=== PATIENT | male | born 1945 | race Caucasian/White ===

== ENCOUNTER → 2019-01-12 10:47 | Outpatient (CLI) | payer MEDICARE, MEDICAID, SELFPAY ==
[2019-01-12 12:47] LABS: BUN Creatinine Ratio 20.8 (6-22); Blood Urea Nitrogen 25 mg/dL (9-20); Calcium 9.9 mg/dL (8.4-10.2); Carbon Dioxide 31 mmol/L (22-32); Chloride 98 mmol/L (98-107); Estimated Glomerular Filt Rate 58.9 mL/min (>60); Glucose 109 mg/dL (80-110); HEMOLYSIS < 15 (0-50); Potassium 3.7 mmol/L (3.4-5.1); Sodium 140 mmol/L (137-145)
== END ==
PROVIDERS: PCP Internal Medicine Cardiovascular Disease; Visit Provider Internal Medicine Cardiovascular Disease
DX: I10 Essential (primary) hypertension (principal)
CPT/HCPCS: 36415; 80048

== ENCOUNTER → 2019-03-14 10:59 | Outpatient (CLI) | payer MEDICARE, MEDICAID, SELFPAY ==
[2019-03-14 11:19] LABS: Add Manual Diff / Slide Review NO; Basophils Absolute Auto 100 /uL (0-100); Basophils Percent Auto 1.2 % (0-2); Eosinophils Absolute Auto 300 /uL (0-450); Eosinophils Percent Auto 7.9 % (2-4); Hematocrit 42.7 % (41-53); Hemoglobin 14.6 g/dL (13.5-17.5); Lymphocytes Absolute Auto 900 /uL (1100-4500); Lymphocytes Percent Auto 20.5 % (25-40); Mean Corpuscular HGB Conc 34.1 % (30-36); Mean Corpuscular Hemoglobin 29.6 PG (26-34); Mean Corpuscular Volume 86.8 fL (80-100); Monocytes Absolute Auto 500 /uL (0-900); Monocytes Percent Auto 11.2 % (3-14); Neutrophils Absolute Auto 2600 /uL (1500-7000); Neutrophils Percent Auto 59.2 % (50-75); Platelet Count 144 X10^3/uL (150-400); Red Blood Cell Count 4.92 X10^6/uL (4.5-5.9); White Blood Cell Count 4.4 X10^3/uL (4.5-11.0)
[2019-03-14 12:33] LABS: Alanine Aminotransferase 42 IU/L (21-72); Albumin 4.6 g/dL (3.5-5.0); Albumin Globulin Ratio 1.5 (1.0-2.8); Alkaline Phosphatase 31 U/L (38-126); Aspartate Aminotransferase 38 IU/L (17-59); BUN Creatinine Ratio 16.9 (6-22); Bilirubin Total 1.2 mg/dL (0.2-1.3); Blood Urea Nitrogen 22 mg/dL (9-20); Calcium 9.9 mg/dL (8.4-10.2); Carbon Dioxide 31 mmol/L (22-32); Chloride 98 mmol/L (98-107); Cholesterol 191 mg/dL (140-199); Estimated Glomerular Filt Rate 53.7 mL/min (>60); Glucose 123 mg/dL (80-110); HDL Cholesterol 65 mg/dL (40-60); HEMOLYSIS < 15 (0-50); LDL Cholesterol Calculated 107 mg/dL (<100); Sodium 137 mmol/L (137-145); Total Protein 7.6 g/dL (6.3-8.2); Triglycerides 95 mg/dL (35-150)
[2019-03-14 12:34] LABS: Creatinine Urine Random 194.5 mg/dL
[2019-03-14 12:35] LABS: Microalbumi Creatinin Ratio Ur 51.9 ug/mg CR (<30); Microalbumin Urine Random 10.1 mg/dL (0-1.6)
[2019-03-14 13:02] LABS: Prostate Specific Antigen Scrn 2.05 ng/mL (0.1-4.0)
[2019-03-14 13:29] LABS: TSH w/ Reflex to FT4 2.51 uIU/mL (0.47-4.68)
== END ==
PROVIDERS: Visit Provider Nurse Practitioner
DX: I10 Essential (primary) hypertension (principal); I48.91 Unspecified atrial fibrillation; Z12.5 Encounter for screening for malignant neoplasm of prostate
CPT/HCPCS: 36415; 80053; 80061; 82043; 82570; 84443; 85025; G0103

== ENCOUNTER → 2019-05-01 13:50 | Outpatient (CLI) | payer MEDICARE, MEDICAID, SELFPAY ==
--- NOTE | 2019-05-01 | DI.ECHO.S_ITS ---
[facility] +---------+ : : [address] : [place] : : : : [id number] : : : : Phone: [phone]+ Echocardiogram Report + + :Name: JORGE ALBERT Study Date: 05/01/2019 Height: 71 in : :[facility] Exam Location: [facility] Weight: 225 lb : : Gender: Male BSA: 2.2 m2 : :: 1945 Age: 74 yrs BP: 150/80 mmHg: :Reason For Study: Cardiomyopathy : :Ordering Physician: Gurdeep Rivas : :Tanvir Performed By: Mar Page : + + Interpretation Summary 1) Mildly enlarged left ventricle with mildly to moderately reduced systolic function (EF about 40%). 2) Normal right ventricular size with low normal function. 3) Both atria are severely dilated. s/p remote ASD closure. 4) Moderate aortic stenosis present (valve area 1.3cm2, mean gradient 11mmHg, severity ratio 0.3). 5) Milld to moderate mitral regurgitation present. 6) Compared to the Echo done 11/06/2012, moderate aortic stenosis is present on this study. Procedure: A two-dimensional transthoracic echocardiogram with color flow and Doppler was performed. The study quality was technically adequate. Comparison is made with the echocardiogram of 11/06/2012. The patient was in atrial fibrillation with heart rates between 64-100 bpm during the exam. The patient had frequent PVCs during the exam. Left Ventricle: The left ventricle is mildly dilated. Left ventricular wall thickness is mildly increased. Left ventricular ejection fraction is estimated to be 40 +/- 5%. There is mild to moderate global hypokinesis of the left ventricle. Diastolic function could not be accurately assessed due to atrial fibrillation. Right Ventricle: The right ventricle is normal size. Right ventricular systolic function is at the lower limits of normal. Atria: Both atria are severely dilated. There is no Doppler evidence for an interatrial shunt. The patient has a history of a ASD repair approximately 30 years ago. Mitral Valve: The mitral valve leaflets are mildly calcified. There is mild to moderate mitral regurgitation. Aortic Valve: The aortic valve is trileaflet. The aortic valve opens well. There is moderate aortic stenosis. There is trace aortic regurgitation. Tricuspid Valve: The tricuspid valve is normal in structure and function. There is mild tricuspid regurgitation. The right ventricular systolic pressure is estimated to be at least 24 mmHg based on an estimated right atrial pressure of 3 mm Hg. Pulmonic Valve: The pulmonic valve is not well visualized. There is trace pulmonic regurgitation. Great Vessels: The aortic root is normal size. The ascending aorta is at the upper limits of normal in size. The pulmonary artery is not well visualized, but is probably normal size. The IVC is of normal diameter and collapses greater than 50% with a sniff. This suggests a low right atrial pressure of 3 mm Hg. Pericardium/ Pleura There is no pericardial effusion. There is no pleural effusion. MMode/2D Measurements & Calculations LVIDd: 6.2 cm LVOT diam: 2.3 cm LVIDs: 4.8 cm Ao root diam: 3.4 cm FS: 23.7 % asc Aorta Diam: 3.6 cm EPSS: 0.77 cm IVSd: 1.2 cm LVPWd: 1.1 cm LV mendoza. diameter/BSA (cm/m^2): 2.8 LV sys. diameter/BSA (cm/m^2): 2.1 LA A2 area: 34.8 cm2 RA long axis: 6.7 cm LA A4 area: 35.7 cm2 RA area: 33.1 cm2 LA length (vol): 8.2 cm RA vol: 138.9 ml LA vol: 128.6 ml RA : 62.6 ml/m2 LA vol index: 58.0 ml/m2 IVC diam: 2.0 cm RVD1 (basal): 4.6 cm TAPSE: 1.9 cm Doppler Measurements & Calculations Ao V2 max: 220.4 cm/sec LVOT Max Ignacio: 64.1 cm/sec Ao V2 mean: 157.9 cm/sec LV V1 max P.6 mmHg Ao max P.4 mmHg LV V1 VTI: 13.6 cm Ao mean P.0 mmHg JOSEY(I,D): 1.3 cm2 Ao V2 VTI: 45.5 cm JOSEY(V,D): 1.2 cm2 sev ratio: 0.30 JOSEY indexed to BSA (cm^2/m^2): 0.57 MV E max ignacio: 86.6 cm/sec TR max ignacio: 231.0 cm/sec MV P1/2t: 50.5 msec TR max P.4 mmHg PA V2 max: 72.1 cm/sec PA V2 mean: 42.3 cm/sec PA mean P.86 mmHg PA Accel Time: 0.08 sec MV P1/2t max ignacio: 87.0 cm/sec SV(LVOT): 58.0 ml MVA(P1/2t): 4.4 cm2 Reading Physician:04:12 PM
== END ==
PROVIDERS: Visit Provider Internal Medicine Cardiovascular Disease
DX: I08.3 Combined rheumatic disorders of mitral, aortic and tricuspid valves (principal); I42.9 Cardiomyopathy, unspecified
CPT/HCPCS: 93306

== ENCOUNTER → 2019-09-21 15:17 | Outpatient (CLI) | payer MEDICARE, MEDICAID, SELFPAY ==
[2019-09-21 15:47] LABS: Carbon Dioxide 33 mmol/L (22-32); Chloride 99 mmol/L (98-107); Magnesium 1.8 mg/dL (1.6-2.3); Sodium 141 mmol/L (137-145)
[2019-09-21 15:49] LABS: HEMOLYSIS 64 (0-50); Potassium 4.3 mmol/L (3.4-5.1)
== END ==
PROVIDERS: Visit Provider Nurse Practitioner
DX: I10 Essential (primary) hypertension (principal); I48.11 Longstanding persistent atrial fibrillation; I50.22 Chronic systolic (congestive) heart failure
CPT/HCPCS: 36415; 80051; 83735

== ENCOUNTER → 2019-10-02 15:03 | Outpatient (CLI) | payer MEDICARE, MEDICAID, SELFPAY ==
--- NOTE | 2019-10-02 15:06 | DI.US.S_ITS ---
PROCEDURE: US ABD AORTA ANEURYSM SCREEN INDICATIONS: PULSITILE ABD MASS, R/O AAA TECHNIQUE: Real time scanning was performed of the aorta and iliac arteries, with image documentation. COMPARISON: None. FINDINGS: Aorta: Proximal aortic diameter measures 2.7 cm. Mid-aorta measures 2.2 cm. Distal aortic diameter is 1.9 cm. Iliac arteries: Right common iliac artery measures 1.4 cm. Left common iliac artery measures 1.2 cm. IMPRESSION: Mild ectasia of the proximal abdominal aorta measuring up to 2.7 cm in diameter. Recommend followup ultrasound in 5 years. Dictated by: Garret Mcgarry M.D. on 10/02/2019 at 17:00 Approved by: Garret Mcgarry M.D. on 10/02/2019 at 17:02
== END ==
PROVIDERS: Visit Provider Nurse Practitioner
DX: R19.00 Intra-abdominal and pelvic swelling, mass and lump, unspecified site (principal); I77.811 Abdominal aortic ectasia; I12.9 Hypertensive chronic kidney disease with stage 1 through stage 4 chronic kidney disease, or unspecified chronic kidney disease; N18.3 Chronic kidney disease, stage 3 (moderate); I48.11 Longstanding persistent atrial fibrillation; R00.2 Palpitations; Z79.01 Long term (current) use of anticoagulants
CPT/HCPCS: 76706

== ENCOUNTER → 2019-10-18 09:16 | Outpatient (CLI) | payer MEDICARE, MEDICAID, SELFPAY ==
--- NOTE | 2019-11-05 08:38 | P.HOLT.S_ITS ---
[facility] Report Referral & Results Date Patient Seen: 10/18/19 Requesting provider: Laura Hutchison Indication: I71.4 Duration of monitoring (days): 11 Diary information: There were no patient diary entries and 1 patient triggered event. The patient triggered event was associated with ventricular ectopic beat as well as atrial fibrillation. Data: Minimum heart rate identified was 35 beats per minute at 08:01 on 10/27/2019 Maximum overall heart rate was 177 beats per minute at 15:29 on 09/23/2019 Patient was continuously in atrial fibrillation with heart rate ranges as above 12.8% of identified beats were ventricular ectopic in origin Patient had 1 4 beat run of ventricular tachycardia at a rate of 140 beats per minute Impression: Persistent atrial fibrillation as above with heart rate intervals as above although generally heart rate was between 50 and 100 beats per minute Ventricular ectopy as above as well Clinical correlation suggested
== END ==
PROVIDERS: Visit Provider Nurse Practitioner
DX: I71.4 Abdominal aortic aneurysm, without rupture (principal)
CPT/HCPCS: 0296T; 0298T

== ENCOUNTER → 2020-01-08 12:54 | Outpatient (CLI) | payer MEDICARE, MEDICAID, SELFPAY ==
[2020-01-08 13:37] LABS: Hematocrit 41.1 % (41-53); Mean Corpuscular HGB Conc 34.1 % (30-36); Mean Corpuscular Hemoglobin 30.7 PG (26-34); Mean Corpuscular Volume 90.1 fL (80-100); Platelet Count 161 X10^3/uL (150-400); Red Blood Cell Count 4.56 X10^6/uL (4.5-5.9); Red Cell Distribution Width 15.8 % (11.6-14.8); White Blood Cell Count 4.9 X10^3/uL (4.5-11.0)
[2020-01-08 14:00] LABS: Hemoglobin A1C% w Est Avg Glu 6.1 % (4.0-6.0)
[2020-01-08 14:09] LABS: BUN Creatinine Ratio 16.4 (6-22); Blood Urea Nitrogen 21 mg/dL (9-20); Calcium 9.9 mg/dL (8.4-10.2); Carbon Dioxide 34 mmol/L (22-32); Chloride 102 mmol/L (98-107); Cholesterol 201 mg/dL (140-199); Estimated Glomerular Filt Rate 54.5 mL/min (>60); Glucose 115 mg/dL (80-110); HDL Cholesterol 65 mg/dL (40-60); HEMOLYSIS < 15 (0-50); LDL Cholesterol Calculated 116 mg/dL (<100); Potassium 4.5 mmol/L (3.4-5.1); Sodium 140 mmol/L (137-145); Triglycerides 99 mg/dL (35-150)
== END ==
PROVIDERS: PCP Nurse Practitioner; Referring Provider Nurse Practitioner; Visit Provider Nurse Practitioner
DX: E78.5 Hyperlipidemia, unspecified (principal); I10 Essential (primary) hypertension; I48.91 Unspecified atrial fibrillation; I50.9 Heart failure, unspecified; E78.00 Pure hypercholesterolemia, unspecified; R73.9 Hyperglycemia, unspecified; R78.5 Finding of other psychotropic drug in blood
CPT/HCPCS: 36415; 80048; 80061; 83036; 85027

== ENCOUNTER → 2020-05-28 13:39 | Outpatient (CLI) | payer MEDICARE, MEDICAID, SELFPAY ==
--- NOTE | 2020-05-28 | DI.ECHO.S_ITS ---
[facility]---------+ [facility] +---------+ : : [address] : [place] : : : : [id number] : : : : Phone: [phone]---------+ Echocardiogram Report + + :Name: JORGE ALBERT Study Date: 05/28/2020 Height: 71 in : :[facility] Weight: 224 lb : : Gender: Male BSA: 2.2 m2 : :: 1945 Age: 75 yrs BP: 156/78 mmHg: :Reason For Study: CARDIOMYOPATHY : :Ordering Physician: DANAY, : :SHANICE Performed By: Pamella Rosenberg : :Referring: SHANICE RAMEY : + + Interpretation Summary 1) Mildly enlarged left ventricle with mildly to moderately reduced systolic function (EF about 40%). 2) Normal right ventricular size with normal function. 3) Both atria are severely dilated. s/p remote ASD closure. 4) Moderate aortic stenosis present (valve area 1.1cm2, mean gradient 17mmHg, severity ratio 0.27). A bicuspid aortic valve cannot be excluded. 5) Milld to moderate mitral regurgitation present. 6) Hypertension present during the study (BP 156/78mmHg). 7) Compared to the Echo done 05/01/2019, no significant change. Procedure: A two-dimensional transthoracic echocardiogram with color flow and Doppler was performed. The study quality was technically adequate. Comparison is made with the echocardiogram of 05/01/2019. The patient was in atrial fibrillation with heart rates between 65-100 bpm during the exam. The patient had frequent PVCs during the exam. Left Ventricle: The left ventricle is mildly dilated. Left ventricular wall thickness is mildly increased. Left ventricular ejection fraction is estimated to be 40 +/- 5%. Diastolic function could not be accurately assessed due to atrial fibrillation. Right Ventricle: The right ventricle is normal in size and function. Atria: The left atrium is severely dilated. The right atrium is severely dilated. History of inatrial closure. Mitral Valve: The mitral valve leaflets are mildly calcified. There is mild to moderate mitral regurgitation. Aortic Valve: A bicuspid aortic valve cannot be excluded. There is moderate aortic stenosis. There is trace aortic regurgitation. Tricuspid Valve: The tricuspid valve is normal in structure and function. There is mild tricuspid regurgitation. The right ventricular systolic pressure is estimated to be at least 31 mmHg based on an estimated right atrial pressure of 3 mm Hg. Pulmonic Valve: The pulmonic valve leaflets are thin and pliable; valve motion is normal. There is trace pulmonic regurgitation. Great Vessels: The aortic root is normal size. The dimensions of the ascending aorta are normal. The IVC is of normal diameter and collapses greater than 50% with a sniff. This suggests a low right atrial pressure of 3 mm Hg. Pericardium/ Pleura There is no pericardial effusion. There is no pleural effusion. MMode/2D Measurements & Calculations LVIDd: 6.0 cm LVOT diam: 2.2 cm LVIDs: 4.8 cm Ao root diam: 3.6 cm FS: 21.0 % asc Aorta Diam: 3.2 cm EPSS: 1.5 cm Ao Arch Diam (Prox Trans): 3.5 cm IVSd: 1.3 cm LVPWd: 1.2 cm LV mendoza. diameter/BSA (cm/m^2): 2.7 LV sys. diameter/BSA (cm/m^2): 2.2 LA A2 area: 34.4 cm2 RA long axis: 7.3 cm LA A4 area: 31.9 cm2 RA area: 30.5 cm2 LA length (vol): 7.0 cm RA vol: 108.2 ml LA vol: 132.2 ml RA : 48.9 ml/m2 LA vol index: 59.7 ml/m2 IVC diam: 2.0 cm RVD1 (basal): 3.5 cm TAPSE: 1.8 cm Doppler Measurements & Calculations Ao V2 max: 262.2 cm/sec LVOT Max Ignacio: 80.4 cm/sec Ao V2 mean: 198.0 cm/sec LV V1 max P.6 mmHg Ao max P.5 mmHg LV V1 VTI: 16.0 cm Ao mean P.7 mmHg JOSEY(I,D): 1.0 cm2 Ao V2 VTI: 58.9 cm JOSEY(V,D): 1.1 cm2 sev ratio: 0.27 JOSEY indexed to BSA (cm^2/m^2): 0.46 MV E max ignacio: 99.1 cm/sec TR max ignacio: 265.3 cm/sec MV A max ignacio: 2.6 cm/sec TR max P.2 mmHg MV E/A: 38.6 PA V2 max: 65.2 cm/sec Med Peak E' Ignacio: 7.3 cm/sec PA V2 mean: 43.3 cm/sec E/E' med: 13.5 PA mean P.86 mmHg Lat Peak E' Ignacio: 10.7 cm/sec PA pr(Accel): 43.0 mmHg E/E' lat: 9.3 E/e' average: 11.4 MV dec time: 0.22 sec MR ERO: 0.17 cm2 MR PISA: 2.7 cm2 SV(LVOT): 59.6 ml MR flow rate: 84.7 cm3/sec MR PISA radius: 0.65 cm Reading Physician:10:56 PM
== END ==
PROVIDERS: PCP Nurse Practitioner; Referring Provider Nurse Practitioner; Visit Provider Internal Medicine Cardiovascular Disease
DX: I08.3 Combined rheumatic disorders of mitral, aortic and tricuspid valves (principal); I42.9 Cardiomyopathy, unspecified
CPT/HCPCS: 93306

== ENCOUNTER → 2020-08-13 13:17 | Outpatient (CLI) | payer MEDICARE, MEDICAID, SELFPAY ==
--- NOTE | 2020-08-13 13:19 | DI.RAD.S_ITS ---
PROCEDURE: XR CHEST 2V INDICATIONS: sob TECHNIQUE: 2 views of the chest were acquired. COMPARISON: [facility], , CHEST 1 VIEW, 05/04/2011, 15:52. FINDINGS: Surgical changes and devices: None. Lungs and pleura: Question subtle pulmonary nodule, right mid lung field, measuring approximately 2 cm. This is not definite. Lungs otherwise clear. Lungs are clear. No pleural effusions or pneumothorax. Mediastinum: Mediastinal contours are normal. Heart size is normal. Bones and chest wall: No suspicious bony abnormalities. Soft tissues appear unremarkable. IMPRESSION: Question 2 cm right mid lung field pulmonary nodule. Recommend CT chest. Dictated by: Brenden Peres M.D. on 08/13/2020 at 13:37 Approved by: Brenden Peres M.D. on 08/13/2020 at 13:51
== END ==
PROVIDERS: PCP Nurse Practitioner; Referring Provider Nurse Practitioner; Visit Provider Nurse Practitioner
DX: R06.02 Shortness of breath (principal); I50.22 Chronic systolic (congestive) heart failure
CPT/HCPCS: 71046

== ENCOUNTER → 2020-08-14 13:32 | Outpatient (CLI) | payer MEDICARE, MEDICAID, SELFPAY ==
--- NOTE | 2020-08-14 13:34 | DI.CT.S_ITS ---
PROCEDURE: CT CHEST W CON INDICATIONS: 2cm density in lung TECHNIQUE: After the administration of intravenous contrast, 5 mm thick sections acquired from the pulmonary apices to the posterior costophrenic angles. 1 mm axial lung, 5 mm thick coronal and sagittal reformats and 7 mm axial MIP were acquired. For radiation dose reduction, the following was used: automated exposure control, adjustment of mA and/or kV according to patient size. COMPARISON: [facility], CR, XR CHEST 2V, 08/13/2020, 13:14. FINDINGS: Image quality: Excellent. Lungs and pleura: There is a subtle pleural-based noncalcified plaque along the anterior right upper lobe surface (3/141), which may account for the chest x-ray opacity. There is a horizontal opacity in the right perihilar region associated with the fissures, likely atelectasis. There are two nodules caudally in the right middle lobe measuring five and 3 mm (3/202). No other suspicious right lung lesions. No lesions are consolidations in the left lung. No pleural effusions or pneumothorax. Central and peripheral airways are patent and normal in caliber. Mediastinum: Heart size is mildly enlarged.. No pericardial effusion. No mediastinal or hilar adenopathy by size criteria. Thoracic aorta and central pulmonary arteries are normal in size. Esophagus is normal in caliber. No hiatal hernia. Bones and chest wall: There is a dermal based nodule measuring approximately 2.3 cm in the posterior chest wall. No other soft tissue lesions. There are median sternotomy changes. No suspicious bony lesions. No vertebral body compression fractures. No axillary or supraclavicular adenopathy by size criteria. Thyroid gland is unremarkable . Abdomen: Visualized upper abdominal solid organs appear normal. Upper abdominal bowel loops are normal in caliber. IMPRESSION: 1. There is an anterior right upper lobe pleural plaque and posterior the skin surface nodule which, superimposed may account for the chest x-ray opacity. No suspicious lung mass. 2. There are small solid lung nodules in the right lung for which follow-up in 6-12 months depending on patient's risk factors is recommended. 3. Mild cardiomegaly and evidence of median sternotomy. Dictated by: Edita Perez M.D. on 08/14/2020 at 17:15 Approved by: Edita Perez M.D. on 08/14/2020 at 17:26
[2020-08-14 14:18] LABS: Add Manual Diff / Slide Review NO; Basophils Absolute Auto 100 /uL (0-100); Basophils Percent Auto 0.8 % (0-2); Eosinophils Absolute Auto 200 /uL (0-450); Eosinophils Percent Auto 3.2 % (2-4); Hematocrit 45.4 % (41-53); Hemoglobin 15.1 g/dL (13.5-17.5); Lymphocytes Absolute Auto 1200 /uL (1100-4500); Lymphocytes Percent Auto 19.1 % (25-40); Mean Corpuscular HGB Conc 33.3 % (30-36); Mean Corpuscular Hemoglobin 29.3 PG (26-34); Monocytes Absolute Auto 700 /uL (0-900); Monocytes Percent Auto 11.4 % (3-14); Neutrophils Absolute Auto 4100 /uL (1500-7000); Neutrophils Percent Auto 65.5 % (50-75); Platelet Count 165 X10^3/uL (150-400); Red Blood Cell Count 5.16 X10^6/uL (4.5-5.9); Red Cell Distribution Width 14.5 % (11.6-14.8); White Blood Cell Count 6.3 X10^3/uL (4.5-11.0)
[2020-08-14 14:31] LABS: Alanine Aminotransferase 28 IU/L (<50); Albumin 4.7 g/dL (3.5-5.0); Albumin Globulin Ratio 1.5 (1.0-2.8); Alkaline Phosphatase 41 U/L (38-126); Aspartate Aminotransferase 35 IU/L (17-59); BUN Creatinine Ratio 20.5 (6-22); Bilirubin Total 0.9 mg/dL (0.2-1.3); Blood Urea Nitrogen 26 mg/dL (9-20); Carbon Dioxide 31 mmol/L (22-32); Chloride 99 mmol/L (98-107); Globulin 3.2 g/dL (1.7-4.1); Glucose 123 mg/dL (80-110); HEMOLYSIS < 15 (0-50); Potassium 3.6 mmol/L (3.4-5.1); Sodium 137 mmol/L (137-145); Total Protein 7.9 g/dL (6.3-8.2)
[2020-08-14 14:35] LABS: Cholesterol 124 mg/dL (140-199); HDL Cholesterol 74 mg/dL (40-60); LDL Cholesterol Calculated 33 mg/dL (<100); Triglycerides 87 mg/dL (35-150)
[2020-08-14 14:48] LABS: Free T3, Triiodothyronine Free 2.85 pg/mL (2.77-5.27); Free T4, Direct Thyroxine 0.75 ng/dL (0.78-2.19)
[2020-08-14 15:01] LABS: Thyroid Stimulating Hormone 2.24 uIU/mL (0.47-4.68)
[2020-08-14 16:04] LABS: Creatinine Urine Random 95.7 mg/dL
[2020-08-14 16:10] LABS: Microalbumi Creatinin Ratio Ur 80.4 ug/mg CR (<30); Microalbumin Urine Random 7.7 mg/dL (0-1.6)
[2020-08-15 09:29] LABS: Hemoglobin A1C% w Est Avg Glu 6.3 % (4.0-6.0)
== END ==
PROVIDERS: PCP Nurse Practitioner; Referring Provider Nurse Practitioner; Visit Provider Nurse Practitioner
DX: R91.1 Solitary pulmonary nodule (principal); I51.7 Cardiomegaly; R91.8 Other nonspecific abnormal finding of lung field; N18.30 Chronic kidney disease, stage 3 unspecified; Z79.899 Other long term (current) drug therapy; G47.10 Hypersomnia, unspecified; I48.11 Longstanding persistent atrial fibrillation; I50.22 Chronic systolic (congestive) heart failure; R53.83 Other fatigue; Z79.01 Long term (current) use of anticoagulants; E78.5 Hyperlipidemia, unspecified; I50.9 Heart failure, unspecified; R00.2 Palpitations; R06.02 Shortness of breath; R73.01 Impaired fasting glucose
CPT/HCPCS: 36415; 71260; 80053; 80061; 82043; 82570; 83036; 84439; 84443; 84481; 85025; Q9967

== ENCOUNTER → 2020-09-10 11:45 | Outpatient (CLI) | payer MEDICARE, MEDICAID, SELFPAY ==
--- NOTE | 2020-09-10 11:48 | DI.US.S_ITS ---
PROCEDURE: US SOFT TISSUE HEAD AND NECK INDICATIONS: swelling upper chest/neck TECHNIQUE: Real-time scanning was performed of the neck region of interest, with image documentation. COMPARISON: None. FINDINGS: Reported midline anterior neck swelling, and scanning through the area of patient's clinical concern reveals no underlying mass cyst or abnormal fluid collection. IMPRESSION: Source of sensation of midline neck swelling is not identified. Contrast-enhanced CT or MR scanning may become necessary. Dictated by: Reymundo Saleh M.D. on 09/10/2020 at 13:27 Approved by: Reymundo Saleh M.D. on 09/10/2020 at 13:28
== END ==
PROVIDERS: PCP Nurse Practitioner; Referring Provider Nurse Practitioner; Visit Provider Nurse Practitioner
DX: R22.1 Localized swelling, mass and lump, neck (principal)
CPT/HCPCS: 76536

== ENCOUNTER → 2020-09-12 12:20 | Outpatient (CLI) | payer MEDICARE, MEDICAID, SELFPAY ==
--- NOTE | 2020-09-12 12:21 | DI.RAD.S_ITS ---
PROCEDURE: FL BARIUM SWALLOW INDICATIONS: trouble swallowing COMPARISON: None. FINDINGS: Function: There is delayed and decreased esophageal peristalsis. No elicited gastroesophageal reflux. There is normal transit of a calibrated barium tablet through the esophagus into the stomach. Morphology: Air-contrast images demonstrate normal mucosal morphology. Single contrast views show no esophageal strictures, extrinsic mass effects. There is a upper esophageal posterior diverticulum above the level of the hyoid. 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 Dictated by: Uriah Kay M.D. on 09/12/2020 at 14:46 Approved by: Uriah Kay M.D. on 09/12/2020 at 14:51
== END ==
PROVIDERS: PCP Nurse Practitioner; Referring Provider Nurse Practitioner; Visit Provider Nurse Practitioner
DX: K22.4 Dyskinesia of esophagus (principal); K44.9 Diaphragmatic hernia without obstruction or gangrene
CPT/HCPCS: 74220

== ENCOUNTER → 2020-10-20 09:21 | Outpatient (CLI) | payer MEDICARE, MEDICAID, SELFPAY ==
[2020-10-20 15:51] LABS: COVID19 -Nasal RAPID Negative (Negative)
== END ==
PROVIDERS: PCP Nurse Practitioner; Visit Provider Family Medicine Sleep Medicine
DX: Z20.828 Contact with and (suspected) exposure to other viral communicable diseases (principal)
CPT/HCPCS: 87635; C9803

== ENCOUNTER 2020-10-22 00:40 | Emergency (ER) | payer MEDICARE, MEDICAID, SELFPAY ==
[2020-10-22] VITALS (12 sets, daily range): BP systolic 148–177; BP diastolic 75–106; PULSE 64–81; RESP 14–28; TEMP 36.1; O2SAT 94–96
--- NOTE | 2020-10-22 00:53 | ED_ITS ---
HPI - SOB/Dyspnea General Chief Complaint: Shortness of Breath/Dyspnea Stated Complaint: SOB, back pain Time Seen by Provider: 10/22/20 00:40 Source: patient and EMS Mode of arrival: EMS Limitations: no limitations History of Present Illness HPI Narrative: 75-year-old male nonsmoker with history of hypertension, AFib (anticoagulated), hyperlipidemia with a history of chronic back pain and obstructive sleep apnea presents by EMS from a local sleep lab with a chief complaint of a sudden onset, and transient episode of shortness of breath associated with some low back pain. Patient states that he was in his normal state of health throughout the course of the day and felt fine when he went to sleep. He states that he woke up at about midnight or so and ambulated to the bathroom and felt okay, he briefly fell back asleep and was awoken with a combination of shortness of breath and some vague lower back pain. He denies any history of the same. He states there was no pattern to his shortness of breath, it was not affected by lying flat, conversation or walking. He denies any chest pain, palpitations, dizziness, lightheadedness or cough. He states that his lower back pain was worse when moving and improved with rest. All of his symptoms have resolved prior to his arrival. He denies any change in his medications. He denies any dietary change or weight gain. He has had no increased swelling in his legs. He denies any exposure to persons known to have COVID MD Complaint: shortness of breath Onset (ago): minute(s) Severity: mild Consistency/Duration: now resolved Relieving factors: nothing Exacerbating factors: nothing Known history of: congestive heart failure Associated symptoms: other (back pain) Treatment prior to arrival: none Related Data Home oxygen amount: none Home Medications Medication Instructions Recorded Confirmed amlodipine 10 mg tablet 10 mg PO DAILY 03/13/19 10/15/20 apixaban 5 mg tablet 5 mg PO BID 03/13/19 10/15/20 losartan 100 mg tablet 100 mg PO DAILY 03/13/19 10/15/20 Previous Rx's Medication Instructions Recorded rosuvastatin 5 mg tablet 5 mg PO DAILY #90 tab 08/13/20 Allergies Allergy/AdvReac Type Severity Reaction Status Date / Time No Known Drug Allergies Allergy Unverified 10/15/20 10:38 Review of Systems Constitutional Constitutional: Denies chills, Denies fatigue, Denies fever(s), Denies frequent falls, Denies lethargy and Denies weakness Eyes Eyes: Denies change in vision, Denies eye discharge, Denies irritation and Denies loss of vision ENT Ears, Nose, Mouth, and Throat: Denies change in voice, Denies dizziness, Denies neck pain, Denies sore throat and Denies throat swelling Cardiovascular Cardiovascular: Denies chest pain, Denies irregular heart rhythm, Denies lightheadedness, Denies palpitations, Reports dyspnea, Denies dyspnea on exertion and Denies orthopnea Respiratory Respiratory: Denies cough, Reports dyspnea, Denies dyspnea on exertion and Denies wheezing Gastrointestinal Gastrointestinal: Denies abdominal pain, Denies change in bowel habits, Denies diarrhea, Denies nausea and Denies vomiting Musculoskeletal Musculoskeletal: Reports back pain, Denies neck pain and Denies numbness Integumentary/Breasts Skin/Breast: Denies pruritus, Denies erythema, Denies rash and Denies wounds Neurologic Neurologic: Denies behavioral changes, Denies confusion, Denies dizziness, Den ies frequent falls, Denies loss of vision, Denies numbness and Denies weakness Psychiatric Psychiatric: Denies anxiety, Denies behavioral changes, Denies confusion, Denies depression, Denies homicidal ideation and Denies suicidal ideation Endocrine Endocrine: Denies fatigue, Denies flushing and Denies palpitations Hematologic/Lymphatic Hematologic/Lymphatic: Denies easy bruising Allergic/Immunologic Allergic/Immunologic: Denies urticaria, Denies throat swelling and Denies wheezing Patient History Medical History Acute right-sided low back pain without sciatica Back stiffness Cervical somatic dysfunction Chicken pox (~1954) Cranial somatic dysfunction Duodenal diverticulum Esophageal dysmotility Hiatal hernia Low back pain Lumbar region somatic dysfunction Measles (~1954) Mumps (~1954) Pelvic somatic dysfunction Pulmonary nodules Sacral region somatic dysfunction Segmental and somatic dysfunction of abdomen and other regions Stiff neck Thoracic region somatic dysfunction Surgical History Anesthesia History of heart surgery (~12/1959) S/P TURP (~2014) Family History Father Stroke History of heart disease Hypertension Mother Pneumonia History of heart disease Hypertension Family/Other Sleep apnea Social History Smoking Status: Never smoker alcohol intake: current (occasional) Smoking Status: Never smoker Exam Narrative Exam Narrative: GENERAL: [75] year old patient appears stated age. Well- nourished, well-developed patient, in mild distress. In no obvious distress HEAD: Atraumatic. Normocephalic. EYES: Pupils equal round and reactive. Extraocular motions intact. No scleral icterus. No injection or drainage. ENT: Nose without bleeding, purulent drainage. Throat without erythema, tonsillar hypertrophy or exudate. Airway patent. NECK: Trachea midline. Non tender CARDIOVASCULAR: Regular rate, irregular rhythm without murmurs, gallops, or rubs. RESPIRATORY: Clear to auscultation. Breath sounds equal bilaterally. No wheezes, rales, or rhonchi. GASTROINTESTINAL: Abdomen soft, non-tender, nondistended. EXTREMITIES: No edema or joint tenderness. BACK: Nontender without deformity or crepitance. No flank tenderness. NEURO: AOx3. SKIN: No rash or erythema of visible areas Initial Vital Signs Initial Vital Signs: Vital Signs Pulse Rate 81 10/22/20 00:45 Respiratory Rate 20 10/22/20 00:45 Blood Pressure 177/106 H 10/22/20 00:45 Pulse Oximetry 95 10/22/20 00:45 Course Orders Ordered: ED Orders 10/22/20 EKG-12 Lead Stat EKG-12 Lead Stat 10/22/20 00:53 XR chest 1V Stat 10/22/20 01:02 Complete Blood Count AUTO DIFF Stat Comprehensive Metabolic Panel Stat D Dimer Stat Ferritin Stat Lactate Dehydrogenase Stat NT-proBNP (BNP-Adult 18+) Stat Procalcitonin Stat Prothrombin Time INR Stat Troponin & CK Cardiac Panel Stat 10/22/20 03:05 Troponin I Stat Vital Signs Vital signs: Vital Signs - 8 hr 10/22/20 00:45 10/22/20 00:50 10/22/20 01:00 Temperature 96.9 F L Pulse Rate 81 74 74 Respiratory Rate 20 24 26 H Blood Pressure 177/106 H 177/106 H Pulse Oximetry 95 96 96 10/22/20 01:19 10/22/20 01:30 10/22/20 02:00 Temperature Pulse Rate 75 75 71 Respiratory Rate 18 22 28 H Blood Pressure 155/79 H 148/75 H Pulse Oximetry 96 95 95 10/22/20 02:30 10/22/20 02:54 10/22/20 03:00 Temperature Pulse Rate 70 64 67 Respiratory Rate 22 22 25 H Blood Pressure 148/75 H Pulse Oximetry 95 94 96 10/22/20 03:30 Temperature Pulse Rate 77 Respiratory Rate 14 Blood Pressure 148/75 H Pulse Oximetry 96 MDM - SOB/Dyspnea Lab Data Attestation: I reviewed the patient's lab results. Result diagrams: 10/22/20 01:02 10/22/20 01:02 Labs: Lab Results 10/22/20 10/22/20 10/22/20 Range/Units 01:02 01:02 01:02 WBC 5.2 (4.5-11.0) X10^3/uL RBC 4.61 (4.5-5.9) X10^6/uL Hgb 13.8 (13.5-17.5) g/dL Hct 40.6 L (41-53) % MCV 88.1 (80-100) fL MCH 29.9 (26-34) PG MCHC 34.0 (30-36) % RDW 15.2 H (11.6-14.8) % Plt Count 146 L (150-400) X10^3/uL Neut % (Auto) 62.1 (50-75) % Lymph % (Auto) 24.3 L (25-40) % [place] % (Auto) 10.5 (3-14) % Eos % (Auto) 2.3 (2-4) % Baso % (Auto) 0.8 (0-2) % Neut # (Auto) 3200 (0819-4850) /uL Lymph # (Auto) 1300 (2409-6232) /uL [place] # (Auto) 500 (0-900) /uL Eos # (Auto) 100 (0-450) /uL Baso # (Auto) 0 (0-100) /uL PT 17.5 H (10.1-12.7) SECONDS INR 1.5 H (0.9-1.3) D-Dimer (<230) ng/mL Sodium 137 (137-145) mmol/L Potassium 3.8 (3.4-5.1) mmol/L Chloride 105 (98-107) mmol/L Carbon Dioxide 26 (22-32) mmol/L BUN 25 H (9-20) mg/dL Creatinine 1.31 H (0.66-1.25) mg/dL Estimated GFR 53.1 L (>60) mL/min BUN/Creatinine Ratio 19.1 (6-22) Glucose 110 (80-110) mg/dL Calcium 9.7 (8.4-10.2) mg/dL Ferritin 75 (18-464) ng/mL Total Bilirubin 1.3 (0.2-1.3) mg/dL AST 44 (17-59) IU/L ALT 28 (<50) IU/L Alkaline Phosphatase 24 L (38-126) U/L Lactate Dehydrogenase 682 H (313-618) U/L Total Creatine Kinase 374 H (55-170) U/L CK-MB (CK-2) 0.78 (<2.37) ng/mL CK-MB (CK-2) Rel Index 0.2 L (1.5-5.0) % Troponin I < 0.012 (0.01-0.034) ng/mL NT-Pro-B Natriuret Pep 447 (<450) pg/mL Total Protein 7.8 (6.3-8.2) g/dL Albumin 4.5 (3.5-5.0) g/dL Globulin 3.3 (1.7-4.1) g/dL Albumin/Globulin Ratio 1.4 (1.0-2.8) Procalcitonin (<0.5) ng/mL 10/22/20 10/22/20 10/22/20 Range/Units 01:02 01:02 03:05 WBC (4.5-11.0) X10^3/uL RBC (4.5-5.9) X10^6/uL Hgb (13.5-17.5) g/dL Hct (41-53) % MCV (80-100) fL MCH (26-34) PG MCHC (30-36) % RDW (11.6-14.8) % Plt Count (150-400) X10^3/uL Neut % (Auto) (50-75) % Lymph % (Auto) (25-40) % [place] % (Auto) (3-14) % Eos % (Auto) (2-4) % Baso % (Auto) (0-2) % Neut # (Auto) (8375-6908) /uL Lymph # (Auto) (7483-2075) /uL [place] # (Auto) (0-900) /uL Eos # (Auto) (0-450) /uL Baso # (Auto) (0-100) /uL PT (10.1-12.7) SECONDS INR (0.9-1.3) D-Dimer 237 H (<230) ng/mL Sodium (137-145) mmol/L Potassium (3.4-5.1) mmol/L Chloride (98-107) mmol/L Carbon Dioxide (22-32) mmol/L BUN (9-20) mg/dL Creatinine (0.66-1.25) mg/dL Estimated GFR (>60) mL/min BUN/Creatinine Ratio (6-22) Glucose (80-110) mg/dL Calcium (8.4-10.2) mg/dL Ferritin (18-464) ng/mL Total Bilirubin (0.2-1.3) mg/dL AST (17-59) IU/L ALT (<50) IU/L Alkaline Phosphatase (38-126) U/L Lactate Dehydrogenase (313-618) U/L Total Creatine Kinase (55-170) U/L CK-MB (CK-2) (<2.37) ng/mL CK-MB (CK-2) Rel Index (1.5-5.0) % Troponin I < 0.012 (0.01-0.034) ng/mL NT-Pro-B Natriuret Pep (<450) pg/mL Total Protein (6.3-8.2) g/dL Albumin (3.5-5.0) g/dL Globulin (1.7-4.1) g/dL Albumin/Globulin Ratio (1.0-2.8) Procalcitonin < 0.05 (<0.5) ng/mL Imaging Data Chest x-ray: Radiologist's Impression: No acute process ECG Data Attestation: I personally reviewed and interpreted this ECG as follows: Interpretation: Slow AFib with occasional PVCs. No other ectopy. No ST segmental change, T-wave inversions. MDM Narrative Medical decision making narrative: Multiple causes of chest pain considered including AL, PE, pneumothorax, pneumonia, aortic dissection, and pleurisy. Patient reports no radiation, no diaphoresis, no provocation with exertion, and no vomiting. Patient, however, completely asymptomatic for duration of visit. Multiple EKGs are nonischemic. Both troponins negative. PE considered but D- dimer negative, therefore thought unlikely. Acute CHF considered but thought unlikely given complete resolution of symptoms without any specific intervention. Patient's symptoms improved over duration of stay with above-stated therapies. Findings and discharge diagnosis discussed with patient/family followed by verbalization of understanding Return precautions discussed with patient/family whom verbalize understanding. Discharge Plan Departure Patient Disposition: Home Clinical Impression: Acute dyspnea Instructions: DI for Shortness of Breath Activity Restrictions/Additional Instructions: *You have been diagnosed with [dyspnea and back pain resolved. Your physical exam, EKGs, lab work and x-ray are all very reassuring. There is no evidence of heart attack, pneumonia, exacerbation of heart failure ] *What to do: *Continue to take medications as directed *Follow up with your primary care provider in 2-3 days, call for an appointment. Let them know you were seen in the Emergency Department and that we ask that you be seen in follow up *Return to ER if you should have any new, worsening or concerning symptoms Prescriptions: No Action amlodipine 10 mg tablet 10 mg PO DAILY RF: 0 Eliquis 5 mg tablet 5 mg PO BID RF: 0 losartan 100 mg tablet 100 mg PO DAILY RF: 0 rosuvastatin [Crestor] 5 mg tablet 5 mg PO DAILY Qty: 90 RF: 0 Referrals: Laura Hutchison ARNP [Primary Care Provider] -
--- NOTE | 2020-10-22 00:53 | DI.RAD.S_ITS ---
PROCEDURE: XR CHEST 1V INDICATIONS: dyspnea and back pain TECHNIQUE: One view of the chest was acquired. COMPARISON: None. FINDINGS: Surgical changes and devices: None. Lungs and pleura: Lungs are clear. No pleural effusions or pneumothorax. Mediastinum: Mediastinal contours appear normal. Tortuous descending thoracic aorta. Heart size is normal. Bones and chest wall: No suspicious bony lesions. Overlying soft tissues appear unremarkable. IMPRESSION: No acute cardiopulmonary disease process. Dictated by: Reba Downey MD, PhD on 10/22/2020 at 8:42 Approved by: Reba Downey MD, PhD on 10/22/2020 at 8:43
[2020-10-22 01:13] LABS: Add Manual Diff / Slide Review NO; Basophils Absolute Auto 0 /uL (0-100); Basophils Percent Auto 0.8 % (0-2); Eosinophils Absolute Auto 100 /uL (0-450); Eosinophils Percent Auto 2.3 % (2-4); Hematocrit 40.6 % (41-53); Hemoglobin 13.8 g/dL (13.5-17.5); Lymphocytes Absolute Auto 1300 /uL (1100-4500); Lymphocytes Percent Auto 24.3 % (25-40); Mean Corpuscular Hemoglobin 29.9 PG (26-34); Mean Corpuscular Volume 88.1 fL (80-100); Monocytes Absolute Auto 500 /uL (0-900); Monocytes Percent Auto 10.5 % (3-14); Neutrophils Absolute Auto 3200 /uL (1500-7000); Neutrophils Percent Auto 62.1 % (50-75); Platelet Count 146 X10^3/uL (150-400); Red Blood Cell Count 4.61 X10^6/uL (4.5-5.9); Red Cell Distribution Width 15.2 % (11.6-14.8); White Blood Cell Count 5.2 X10^3/uL (4.5-11.0)
[2020-10-22 01:23] LABS: Alanine Aminotransferase 28 IU/L (<50); Albumin 4.5 g/dL (3.5-5.0); Albumin Globulin Ratio 1.4 (1.0-2.8); Alkaline Phosphatase 24 U/L (38-126); Aspartate Aminotransferase 44 IU/L (17-59); BUN Creatinine Ratio 19.1 (6-22); Bilirubin Total 1.3 mg/dL (0.2-1.3); Blood Urea Nitrogen 25 mg/dL (9-20); Calcium 9.7 mg/dL (8.4-10.2); Carbon Dioxide 26 mmol/L (22-32); Chloride 105 mmol/L (98-107); Creatine Kinase 374 U/L (55-170); Estimated Glomerular Filt Rate 53.1 mL/min (>60); Globulin 3.3 g/dL (1.7-4.1); Glucose 110 mg/dL (80-110); Sodium 137 mmol/L (137-145); Total Protein 7.8 g/dL (6.3-8.2)
[2020-10-22 01:24] LABS: INR 1.5 (0.9-1.3); Prothrombin Time 17.5 SECONDS (10.1-12.7)
[2020-10-22 01:25] LABS: HEMOLYSIS 84 (0-50)
[2020-10-22 01:26] LABS: Potassium 3.8 mmol/L (3.4-5.1)
[2020-10-22 01:35] LABS: NT-proBNP (BNP-Adult 18+) 447 pg/mL (<450); Troponin I < 0.012 ng/mL (0.01-0.034)
[2020-10-22 01:38] LABS: CKMB % Relative Index 0.2 % (1.5-5.0); Creatine Kinase MB 0.78 ng/mL (<2.37)
[2020-10-22 01:40] LABS: Procalcitonin < 0.05 ng/mL (<0.5)
[2020-10-22 01:52] LABS: Lactate Dehydrogenase 682 U/L (313-618)
[2020-10-22 01:57] LABS: Ferritin 75 ng/mL (18-464)
[2020-10-22 02:33] LABS: D Dimer 237 ng/mL (<230)
[2020-10-22 03:31] LABS: Troponin I < 0.012 ng/mL (0.01-0.034)
== END 2020-10-22 06:00 | disposition home or self-care (01) ==
PROVIDERS: Emergency Provider Emergency Medicine; PCP Nurse Practitioner
DX: R06.00 Dyspnea, unspecified (principal); R07.9 Chest pain, unspecified; M54.5 Low back pain; I10 Essential (primary) hypertension; I48.91 Unspecified atrial fibrillation; Z79.01 Long term (current) use of anticoagulants; E78.5 Hyperlipidemia, unspecified
CPT/HCPCS: 36415; 71045; 80053; 82550; 82553; 82728; 83615; 83880; 84145; 84484; 85025; 85379; 85610; 93005; 99283; 99284

== ENCOUNTER → 2020-11-04 10:12 | Outpatient (CLI) | payer MEDICARE, MEDICAID, SELFPAY ==
[2020-11-04 12:18] LABS: COVID19 -Nasal RAPID Negative (Negative)
== END ==
PROVIDERS: PCP Nurse Practitioner; Visit Provider Family Medicine Sleep Medicine
DX: Z01.812 Encounter for preprocedural laboratory examination (principal); Z20.822 Contact with and (suspected) exposure to COVID-19
CPT/HCPCS: 87635; C9803

== ENCOUNTER → 2020-12-19 12:57 | Outpatient (CLI) | payer MEDICARE, MEDICAID, SELFPAY ==
[2020-12-19 14:13] LABS: HEMOLYSIS < 15 (0-50); Potassium 4.1 mmol/L (3.4-5.1)
[2020-12-19 14:14] LABS: Alanine Aminotransferase 32 IU/L (<50); Albumin Globulin Ratio 1.6 (1.0-2.8); Alkaline Phosphatase 36 U/L (38-126); Aspartate Aminotransferase 37 IU/L (17-59); BUN Creatinine Ratio 12.3 (6-22); Blood Urea Nitrogen 16 mg/dL (9-20); Calcium 9.9 mg/dL (8.4-10.2); Carbon Dioxide 29 mmol/L (22-32); Chloride 102 mmol/L (98-107); Cholesterol 164 mg/dL (140-199); Estimated Glomerular Filt Rate 53.5 mL/min (>60); Globulin 3.1 g/dL (1.7-4.1); Glucose 126 mg/dL (80-110); HDL Cholesterol 91 mg/dL (40-60); LDL Cholesterol Calculated 59 mg/dL (<100); Magnesium 2.1 mg/dL (1.6-2.3); Sodium 139 mmol/L (137-145); Total Protein 8.1 g/dL (6.3-8.2); Triglycerides 68 mg/dL (35-150)
[2020-12-19 14:29] LABS: Free T3, Triiodothyronine Free 3.65 pg/mL (2.77-5.27); Free T4, Direct Thyroxine 0.86 ng/dL (0.78-2.19)
[2020-12-19 14:43] LABS: Thyroid Stimulating Hormone 1.15 uIU/mL (0.47-4.68)
[2020-12-19 16:07] LABS: Microalbumi Creatinin Ratio Ur 244.2 ug/mg CR (<30)
== END ==
PROVIDERS: PCP Nurse Practitioner; Referring Provider Nurse Practitioner; Visit Provider Nurse Practitioner
DX: I10 Essential (primary) hypertension (principal); I50.22 Chronic systolic (congestive) heart failure; N18.30 Chronic kidney disease, stage 3 unspecified; Z01.812 Encounter for preprocedural laboratory examination; E78.5 Hyperlipidemia, unspecified; Z79.899 Other long term (current) drug therapy; R79.89 Other specified abnormal findings of blood chemistry; R73.01 Impaired fasting glucose
CPT/HCPCS: 36415; 80053; 80061; 82043; 82570; 83735; 84439; 84443; 84481

== ENCOUNTER → 2020-12-22 12:30 | Outpatient (CLI) | payer MEDICARE, MEDICAID, SELFPAY | PROVIDERS: PCP Nurse Practitioner; Referring Provider Nurse Practitioner; Visit Provider Nurse Practitioner | DX: Z01.810 Encounter for preprocedural cardiovascular examination (principal) | CPT/HCPCS: 93005 ==

== ENCOUNTER → 2020-12-31 11:00 | Outpatient (CLI) | payer MEDICARE, MEDICAID, SELFPAY ==
[2020-12-31 13:17] LABS: COVID19 -Nasal RAPID Negative (Negative)
== END ==
PROVIDERS: PCP Nurse Practitioner; Visit Provider Nurse Practitioner Family
DX: Z01.812 Encounter for preprocedural laboratory examination (principal); Z20.822 Contact with and (suspected) exposure to COVID-19
CPT/HCPCS: 87635; C9803

== ENCOUNTER → 2021-01-01 08:17 | Outpatient (CLI) | payer MEDICARE, MEDICAID, SELFPAY ==
--- NOTE | 2021-01-01 08:51 | PM.TREADMILL ---
Cardiac Stress Test Report Referral & Results Date Patient Seen: 01/01/21 Time Patient Seen: 08:45 Requesting provider: Laura Hutchison Indication: Preoperative clearance Rest ECG: Atrial fibrillation with frequent PVCs Procedure Note: Today following both written and verbal informed consent, the patient was exercised according to a standard Gabriel protocol. The patient exercised for a total of 1 minutes 23 seconds achieving a maximum heart rate of 159. Patient's maximum systolic blood pressure was 142. Test was terminated early due to marked shortness of breath, fatigue, poor balance that represented an imminent safety concern. Test is incomplete. He demonstrated an exaggerated hemodynamic response to exercise. PVCs became less frequent with exercise. No other EKG changes. Impression: Incomplete test. The patient has serious functional impairment, which is likely to be cardiac in origin. I strongly recommend delaying surgical clearance until after this test is repeated with Lexiscan and cardiolite. Please note: Actual ECG tracings can be found in the PACS system.
== END ==
PROVIDERS: PCP Nurse Practitioner; Referring Provider Nurse Practitioner; Visit Provider Nurse Practitioner
DX: R07.89 Other chest pain (principal); I48.91 Unspecified atrial fibrillation; I49.3 Ventricular premature depolarization
CPT/HCPCS: 93016; 93017; 93018

== ENCOUNTER → 2021-01-14 10:06 | Outpatient (CLI) | payer MEDICARE, MEDICAID, SELFPAY ==
[2021-01-14 11:32] LABS: COVID19 -Nasal RAPID Negative (Negative)
== END ==
PROVIDERS: PCP Nurse Practitioner; Visit Provider Physician Assistant
DX: Z01.812 Encounter for preprocedural laboratory examination (principal); Z20.822 Contact with and (suspected) exposure to COVID-19
CPT/HCPCS: 87635; C9803

== ENCOUNTER → 2021-01-15 10:29 | Outpatient (CLI) | payer MEDICARE, MEDICAID, SELFPAY ==
--- NOTE | 2021-01-15 11:47 | PM.TREADMILL ---
Cardiac Stress Test Report Referral & Results Date Patient Seen: 01/15/21 Time Patient Seen: 11:48 Requesting provider: Laura Hutchison Indication: chest pain Rest ECG: atrial fibrillation with controlled ventricular rate and frequent PVCs Procedure Note: After Lexiscan injection had minimal dyspnea, no chest discomfort No significant ST changes after Lexiscan injection Impression: Normal Lexiscan stress test Nuclear images pending Please note: Actual ECG tracings can be found in the PACS system.
--- NOTE | 2021-01-19 18:04 | DI.NM.S_ITS ---
DATE OF SERVICE: 01/19/2021 PROCEDURE: Pharmacological perfusion study. INDICATION: Preop evaluation, underlying chronic AFib, hypertension, history of CHF, shortness of breath, sleep apnea, chronic kidney disease. RADIOPHARMACEUTICAL: 26.2 millicurie of technetium-99m Myoview IV was injected at stress and 25.7 millicurie of technetium-99m Myoview IV was injected at rest. CARDIAC STRESS: The patient underwent IV Lexiscan perfusion study under the supervision of the attending staff as per standard intravenous Lexiscan protocol. Baseline rhythm was AFib with intermittent PVCs and some nonspecific ST changes. During intravenous Lexiscan stress test, the patient continued to have intermittent PVCs without any obvious ischemic EKG changes. The patient remained in AFib. No chest discomfort. [place] minimal dyspnea. The patient remained hemodynamically stable. RAW DATA: There is increased subdiaphragmatic activity. Patient's weight is 230 pounds. GATED STUDY: Stress LV ejection fraction about 55 percent. There appears to be mild global hypokinesis. Resting LV ejection fraction 51 percent. Resting end- diastolic volume 218 mL, suggestive of dilated left ventricle. TID ratio 0.97, which is within normal limits. Lung/heart ratio 0.66, which is within normal limits. MYOCARDIAL PERFUSION: The stress supine and resting supine images revealed a moderate-sized, mild to moderately decreased perfusion of inferior wall, inferoapex, which got partially improved during prone images. Prone images remain ing have mild to moderately decreased perfusion of base to mid inferior wall. There was no reversible ischemia. CONCLUSION: I will call this study and abnormal myocardial perfusion study with infarction of base to mid inferior wall of mild to moderate size. The patient has a dilated left ventricle. Resting end-diastolic volume 218 mL. Underlying atrial fibrillation with intermittent premature ventricular contractions. Resting left ventricular ejection fraction was 51 percent and stress left ventricular ejection fraction 55 percent. No sustained ventricular tachycardia is seen. John Alberto - LALA/ernesto/daniel doc#: [id number]/job#: [id number] dd: 01/19/2021 16:51:00 dt: 01/19/2021 17:34:00 DICTATING MD/COPIES TO: Rajesh Hobbs MD; Jamaal Stewart DO; Josh Hutchison MD COPIES MNE: PEREZ; ;
== END ==
PROVIDERS: PCP Nurse Practitioner; Referring Provider Nurse Practitioner; Visit Provider Nurse Practitioner
DX: R07.89 Other chest pain (principal); R94.39 Abnormal result of other cardiovascular function study; I13.0 Hypertensive heart and chronic kidney disease with heart failure and stage 1 through stage 4 chronic kidney disease, or unspecified chronic kidney disease; N18.9 Chronic kidney disease, unspecified; I50.9 Heart failure, unspecified; I48.20 Chronic atrial fibrillation, unspecified; G47.30 Sleep apnea, unspecified
CPT/HCPCS: 78452; 93016; 93017; 93018; A9502; J2785

== ENCOUNTER → 2021-06-09 14:39 | Outpatient (CLI) | payer MEDICARE, MEDICAID, SELFPAY ==
--- NOTE | 2021-06-09 14:41 | DI.ECHO.S_ITS ---
[facility]---------+ [facility] +---------+ : : [address] : [place] : : : : [id number] : : : : Phone: [phone]+ Echocardiogram Report + + :Name: JORGE ALBERT Study Date: 06/09/2021 Height: 71 in : :[facility] ReadingLocation: Weight: 225 lb : : Gender: Male BSA: 2.2 m2 : :: 1945 Age: 76 yrs BP: 151/100 mmHg: :Reason For Study: CARDIOMYOPAHTY : :Ordering Physician: DANAY, : :SHANICE Performed By: Pamella Rosenberg : :Referring: SHANICE RAMEY : + + Interpretation Summary 1) Mildly enlarged left ventricle with mildly reduced systolic function (EF 45-50%). 2) Mildly enlarged right ventricular size with normal function. 3) Both atria are severely dilated. s/p remote ASD closure. 4) Moderate aortic stenosis present (valve area 1.2cm2, mean gradient 11mmHg, severity ratio 0.31). A bicuspid aortic valve cannot be excluded. 5) Milld to moderate mitral regurgitation present. 6) Hypertension present during the study (BP 151/100mmHg). 7) Compared to the Echo done 05/28/2020, LVEF has improved from about 40% to 45-50% on this study. Procedure: A two-dimensional transthoracic echocardiogram with color flow and Doppler was performed. The study quality was technically adequate. There is no prior echocardiogram noted for this patient. The patient had occasional PVCs during the exam. The heart rate ranged between 61-87 bpm during the study. Left Ventricle: The left ventricle is mildly dilated. There is mild concentric left ventricular hypertrophy. The ejection fraction is estimated to be 45-50%. Right Ventricle: The right ventricle is mildly dilated. The right ventricular systolic function is normal. Atria: The left atrium is severely dilated. The right atrium is severely dilated. There is no Doppler evidence for an interatrial shunt. Mitral Valve: The mitral valve leaflets appear mildly thickened, but open well. There is mild to moderate mitral regurgitation. Aortic Valve: A bicuspid aortic valve cannot be excluded. There is moderate aortic stenosis. The peak aortic velocity is 2.12 m/sec. The aortic valve mean gradient is 11 mmHg. The calculated aortic valve area is 1.2 cm2. There is mild aortic regurgitation. Tricuspid Valve: The tricuspid valve is normal in structure and function. There is mild tricuspid regurgitation. The right ventricular systolic pressure is estimated to be at least 35 mmHg based on an estimated right atrial pressure of 3 mm Hg. Pulmonic Valve: The pulmonic valve is not well seen, but is grossly normal. There is mild pulmonic regurgitation. Great Vessels: The aortic root is normal size. The ascending aorta is at the upper limits of normal in size. The IVC is of normal diameter and collapses greater than 50% with a sniff. This suggests a low right atrial pressure of 3 mm Hg. Pericardium/ Pleura There is no pericardial effusion. There is no pleural effusion. MMode/2D Measurements & Calculations LVIDd: 6.1 cm LVOT diam: 2.2 cm LVIDs: 4.5 cm Ao root diam: 3.7 cm FS: 26.8 % asc Aorta Diam: 3.4 cm IVSd: 1.1 cm Ao Arch Diam (Prox Trans): 3.0 cm LVPWd: 1.2 cm LV mendoza. diameter/BSA (cm/m^2): 2.8 LV sys. diameter/BSA (cm/m^2): 2.0 LA A2 area: 36.7 cm2 RA long axis: 7.4 cm LA A4 area: 36.2 cm2 RA area: 33.5 cm2 LA length (vol): 7.7 cm RA vol: 129.2 ml LA vol: 146.8 ml RA : 58.3 ml/m2 LA vol index: 66.2 ml/m2 IVC diam: 1.6 cm RVD1 (basal): 4.4 cm TAPSE: 1.9 cm Doppler Measurements & Calculations Ao V2 max: 212.3 cm/sec LVOT Max Ignacio: 67.4 cm/sec Ao V2 mean: 157.6 cm/sec LV V1 max P.8 mmHg Ao max P.6 mmHg LV V1 VTI: 13.8 cm Ao mean P.1 mmHg JOSEY(I,D): 1.2 cm2 Ao V2 VTI: 44.8 cm JOSEY(V,D): 1.2 cm2 sev ratio: 0.31 JOSEY indexed to BSA (cm^2/m^2): 0.54 MV E max ignacio: 94.4 cm/sec TR max ignacio: 281.3 cm/sec MV A max ignacio: 1.9 cm/sec TR max P.7 mmHg MV E/A: 50.5 PA pr(Accel): 22.5 mmHg Med Peak E' Ignacio: 8.4 cm/sec E/E' med: 11.2 Lat Peak E' Ignacio: 13.4 cm/sec E/E' lat: 7.1 E/e' average: 9.1 MV dec time: 0.19 sec SV(LVOT): 53.4 ml Reading Physician:04:35 PM
== END ==
PROVIDERS: PCP Nurse Practitioner; Referring Provider Internal Medicine Cardiovascular Disease; Visit Provider Internal Medicine Cardiovascular Disease
DX: I08.3 Combined rheumatic disorders of mitral, aortic and tricuspid valves (principal); I42.8 Other cardiomyopathies
CPT/HCPCS: 93306

== ENCOUNTER 2021-12-08 12:27 | Emergency (ER) | payer MEDICARE, MEDICAID, SELFPAY ==
[2021-12-08] VITALS (7 sets, daily range): BP systolic 151–179; BP diastolic 72–90; PULSE 73–103; RESP 21–27; TEMP 37; O2SAT 93–96; BMI 33.0
--- NOTE | 2021-12-08 12:34 | DI.RAD.S_ITS ---
PROCEDURE: XR CHEST 1V INDICATIONS: chest pain TECHNIQUE: One view of the chest was acquired. COMPARISON: [facility], CR, XR CHEST 1V, 10/22/2020, 1:00. FINDINGS: Surgical changes and devices: Sternotomy wires are seen. Lungs and pleura: Lungs are clear. No pleural effusions or pneumothorax. Mediastinum: The cardiac contours are within normal limits. The aorta demonstrates calcification and tortuosity. Bones and chest wall: Age-appropriate bony degenerative changes are seen. No suspicious bony lesions. Overlying soft tissues appear unremarkable. IMPRESSION: No significant portable chest abnormality can be seen for age. If clinically appropriate, a short-term followup chest series (with PA and lateral views) performed in deep inspiration is suggested for further evaluation. Dictated by: Karlos Rosales M.D. on 12/08/2021 at 11:48 Approved by: Karlos Rosales M.D. on 12/08/2021 at 11:48
[2021-12-08 12:49] LABS: Add Manual Diff / Slide Review NO; Basophils Absolute Auto 0 /uL (0-100); Basophils Percent Auto 0.9 % (0-2); Eosinophils Absolute Auto 300 /uL (0-450); Hematocrit 41.3 % (41-53); Hemoglobin 14.3 g/dL (13.5-17.5); Lymphocytes Absolute Auto 1100 /uL (1100-4500); Lymphocytes Percent Auto 19.7 % (25-40); Mean Corpuscular HGB Conc 34.7 % (30-36); Mean Corpuscular Hemoglobin 30.1 PG (26-34); Mean Corpuscular Volume 86.8 fL (80-100); Monocytes Absolute Auto 600 /uL (0-900); Monocytes Percent Auto 10.5 % (3-14); Neutrophils Absolute Auto 3600 /uL (1500-7000); Neutrophils Percent Auto 63.9 % (50-75); Platelet Count 177 X10^3/uL (150-400); Red Blood Cell Count 4.76 X10^6/uL (4.5-5.9); Red Cell Distribution Width 14.7 % (11.6-14.8); White Blood Cell Count 5.6 X10^3/uL (4.5-11.0)
[2021-12-08 12:58] LABS: INR 1.4 (0.9-1.3); Prothrombin Time 15.2 SECONDS (10.1-12.7)
[2021-12-08 13:01] LABS: PTT Partial Thromboplastin Tim 58 SECONDS (26.4-36.2)
[2021-12-08 13:03] LABS: Alanine Aminotransferase 31 IU/L (<50); Albumin 4.6 g/dL (3.5-5.0); Albumin Globulin Ratio 1.5 (1.0-2.8); Alkaline Phosphatase 50 U/L (38-126); Aspartate Aminotransferase 37 IU/L (17-59); BUN Creatinine Ratio 18.5 (6-22); Bilirubin Total 0.7 mg/dL (0.2-1.3); Blood Urea Nitrogen 22 mg/dL (9-20); Calcium 9.7 mg/dL (8.4-10.2); Carbon Dioxide 31 mmol/L (22-32); Chloride 99 mmol/L (98-107); Creatine Kinase 134 U/L (55-170); Estimated Glomerular Filt Rate 59.1 mL/min (>60); Glucose 184 mg/dL (80-110); HEMOLYSIS < 15 (0-50); Lipase 180 U/L (23-300); Magnesium 1.8 mg/dL (1.6-2.3); Potassium 3.6 mmol/L (3.4-5.1); Sodium 137 mmol/L (137-145); Total Protein 7.6 g/dL (6.3-8.2)
[2021-12-08 13:06] LABS: COVID19 -Nasal RAPID Negative (Negative)
[2021-12-08 13:13] LABS: Troponin I < 0.012 ng/mL (0.01-0.034)
[2021-12-08 13:19] LABS: CKMB % Relative Index 1.3 % (1.5-5.0)
--- NOTE | 2021-12-08 13:25 | PC.NURSE ---
PT reports right lower chest pain x 1 week. Reports history of Afib and CHF. Increased shortness of breath and pain increases when he tries to sleep.
[2021-12-08 13:49] LABS: NT-proBNP (BNP-Adult 18+) 755 pg/mL (<450)
--- NOTE | 2021-12-08 14:13 | ED.CHESTPAIN ---
HPI - Chest Pain General Chief Complaint: Chest Pain Stated Complaint: CHEST PAIN Time Seen by Provider: 12/08/21 14:04 Source: patient Mode of arrival: Ambulatory Limitations: no limitations Limitations: no limitations History of Present Illness HPI narrative: This is a 76-year-old male who comes in with complaint of week and a half of right-sided chest pain. Patient states that it has been intermittent but is typically persistent overnight he started noticing more frequently during the day. Had a little bit of tight sensation. He states the 1st night or day that he really noticed it was radiating from front to back they put some pain patches on which was somewhat helpful. Has not had continued radiation. He did notice that he has had several scabbed and erythematous spots on his chest this started around the same time as the pain. Patient states feels little short of breath no fevers or chills. No cold cough or congestion. He has not been sweaty or diaphoretic, no nausea or vomiting. Patient does have a history of AFib, he is on Eliquis as a history CHF. No cardiac stents. He had a cardiac surgery as a child. He denies any ablation, cardiac stents and had a catheterization 12 years ago which was negative. He has had prostate surgery for BPH. No tobacco, alcohol or illicit. Related Data Home Medications Medication Instructions Recorded Confirmed amlodipine 10 mg tablet 10 mg PO DAILY 03/13/19 12/08/21 apixaban 5 mg tablet (Eliquis) 5 mg PO BID 03/13/19 12/08/21 losartan 100 mg tablet 100 mg PO DAILY 03/13/19 12/08/21 CPAP ResMed 07/29/21 07/29/21 chlorthalidone 25 mg tablet 12.5 mg PO DAILY 12/08/21 12/08/21 Previous Rx's Medication Instructions Recorded rosuvastatin 5 mg tablet (Crestor) 5 mg PO DAILY #90 tab 08/13/20 gabapentin 300 mg capsule 300 mg PO TID #30 cap 12/08/21 valacyclovir 1 gram tablet 1,000 mg PO TID 7 Days #21 tab 12/08/21 Allergies Allergy/AdvReac Type Severity Reaction Status Date / Time No Known Drug Allergies Allergy Verified 12/08/21 12:34 Review of Systems Review of Systems ROS Unobtainable: All systems reviewed & are unremarkable except as noted in HPI and below Patient History Medical History Acute right-sided low back pain without sciatica Back stiffness Cervical somatic dysfunction Chicken pox (~1954) Cranial somatic dysfunction Duodenal diverticulum Esophageal dysmotility Hiatal hernia Low back pain Lumbar region somatic dysfunction Measles (~1954) Mumps (~1954) Pelvic somatic dysfunction Pulmonary nodules Sacral region somatic dysfunction Segmental and somatic dysfunction of abdomen and other regions Stiff neck Thoracic region somatic dysfunction Surgical History Anesthesia History of heart surgery (~12/1959) S/P TURP (~2014) Family History Father Stroke History of heart disease Hypertension Mother Pneumonia History of heart disease Hypertension Family/Other Sleep apnea Social History Smoking Status: Never smoker alcohol intake: current (occasional) Smoking Status: Never smoker alcohol intake frequency: holidays/special occasions only Substance Use Type: does not use Exam Narrative Exam Narrative: GENERAL: Alert and oriented x three, well-nourished male in mild distress. HEENT: Head normocephalic, atraumatic, EOMI, pupils reactive, face symmetric, moist mucous membranes NECK: Supple, full range of motion CARDIOVASCULAR: Regular rate and rhythm without murmurs, rubs or gallops. Patient has an erythematous vesicular rash extending from his right T6 dermatome midline anterior chest with several lesions and a few including in his back to the posterior midline. RESPIRATORY: Breath sounds equal bilaterally, no wheezes rales or rhonchi. ABDOMEN: Soft, nontender. Normoactive bowel sounds all 4 quadrants. No guarding or rebound, rigidity, no mass : No CVA tenderness EXTREMITIES: Normal range of motion. Neurovascularly intact. NEUROLOGICAL: Cranial nerves II through XII grossly intact. Moving all extremities SKIN: Warm, dry, no petechiae, no rashes or lesions otherwise noted. Initial Vital Signs Initial Vital Signs: Vital Signs Temperature 98.6 F 12/08/21 12:29 Pulse Rate 103 H 12/08/21 12:29 Respiratory Rate 24 12/08/21 12:29 Blood Pressure 179/90 H 12/08/21 12:29 Pulse Oximetry 96 12/08/21 12:29 Course Orders Ordered: ED Orders 12/08/21 12:34 XR chest 1V Stat EKG-12 Lead Stat 12/08/21 12:35 COVID19 -Nasal swab/Pre-Proc Stat Complete Blood Count AUTO DIFF Stat Comprehensive Metabolic Panel Stat Lipase Stat Magnesium Stat Partial Thromboplastin Time Stat Prothrombin Time INR Stat Troponin & CK Cardiac Panel Stat 12/08/21 13:25 BNP [NT-proBNP (BNP-Adult 18+)] Stat Vital Signs Vital signs: Vital Signs - 8 hr 12/08/21 12:29 12/08/21 12:32 12/08/21 12:33 Temperature 98.6 F Pulse Rate 103 H 100 H Respiratory Rate 24 Blood Pressure 179/90 H 179/90 H Pulse Oximetry 96 96 96 12/08/21 13:00 12/08/21 13:30 12/08/21 15:02 Temperature Pulse Rate 82 73 86 Respiratory Rate 27 H 21 Blood Pressure 161/72 H 151/74 H 177/84 H Pulse Oximetry 96 93 96 12/08/21 15:08 Temperature Pulse Rate 77 Respiratory Rate Blood Pressure 177/84 H Pulse Oximetry 96 MDM - Chest Pain Lab Data Result diagrams: 12/08/21 12:35 12/08/21 12:35 Labs: Lab Results 12/08/21 12/08/21 12/08/21 Range/Units 12:35 12:35 12:35 WBC 5.6 (4.5-11.0) X10^3/uL RBC 4.76 (4.5-5.9) X10^6/uL Hgb 14.3 (13.5-17.5) g/dL Hct 41.3 (41-53) % MCV 86.8 (80-100) fL MCH 30.1 (26-34) PG MCHC 34.7 (30-36) % RDW 14.7 (11.6-14.8) % Plt Count 177 (150-400) X10^3/uL Neut % (Auto) 63.9 (50-75) % Lymph % (Auto) 19.7 L (25-40) % [place] % (Auto) 10.5 (3-14) % Eos % (Auto) 5.0 H (2-4) % Baso % (Auto) 0.9 (0-2) % Neut # (Auto) 3600 (4508-6141) /uL Lymph # (Auto) 1100 (1380-4280) /uL [place] # (Auto) 600 (0-900) /uL Eos # (Auto) 300 (0-450) /uL Baso # (Auto) 0 (0-100) /uL PT 15.2 H (10.1-12.7) SECONDS INR 1.4 H (0.9-1.3) APTT 58 H (26.4-36.2) SECONDS Sodium 137 (137-145) mmol/L Potassium 3.6 (3.4-5.1) mmol/L Chloride 99 (98-107) mmol/L Carbon Dioxide 31 (22-32) mmol/L BUN 22 H (9-20) mg/dL Creatinine 1.19 (0.66-1.25) mg/dL Estimated GFR 59.1 L (>60) mL/min BUN/Creatinine Ratio 18.5 (6-22) Glucose 184 H (80-110) mg/dL Calcium 9.7 (8.4-10.2) mg/dL Magnesium 1.8 (1.6-2.3) mg/dL Total Bilirubin 0.7 (0.2-1.3) mg/dL AST 37 (17-59) IU/L ALT 31 (<50) IU/L Alkaline Phosphatase 50 (38-126) U/L Total Creatine Kinase 134 (55-170) U/L CK-MB (CK-2) 1.80 (<2.37) ng/mL CK-MB (CK-2) Rel Index 1.3 L (1.5-5.0) % Troponin I < 0.012 (0.01-0.034) ng/mL NT-Pro-B Natriuret Pep (<450) pg/mL Total Protein 7.6 (6.3-8.2) g/dL Albumin 4.6 (3.5-5.0) g/dL Globulin 3.0 (1.7-4.1) g/dL Albumin/Globulin Ratio 1.5 (1.0-2.8) Lipase 180 (23-300) U/L SARS-CoV-2 (PCR) (Negative) 12/08/21 12/08/21 Range/Units 12:35 13:25 WBC (4.5-11.0) X10^3/uL RBC (4.5-5.9) X10^6/uL Hgb (13.5-17.5) g/dL Hct (41-53) % MCV (80-100) fL MCH (26-34) PG MCHC (30-36) % RDW (11.6-14.8) % Plt Count (150-400) X10^3/uL Neut % (Auto) (50-75) % Lymph % (Auto) (25-40) % [place] % (Auto) (3-14) % Eos % (Auto) (2-4) % Baso % (Auto) (0-2) % Neut # (Auto) (3347-4180) /uL Lymph # (Auto) (0080-5784) /uL [place] # (Auto) (0-900) /uL Eos # (Auto) (0-450) /uL Baso # (Auto) (0-100) /uL PT (10.1-12.7) SECONDS INR (0.9-1.3) APTT (26.4-36.2) SECONDS Sodium (137-145) mmol/L Potassium (3.4-5.1) mmol/L Chloride (98-107) mmol/L Carbon Dioxide (22-32) mmol/L BUN (9-20) mg/dL Creatinine (0.66-1.25) mg/dL Estimated GFR (>60) mL/min BUN/Creatinine Ratio (6-22) Glucose (80-110) mg/dL Calcium (8.4-10.2) mg/dL Magnesium (1.6-2.3) mg/dL Total Bilirubin (0.2-1.3) mg/dL AST (17-59) IU/L ALT (<50) IU/L Alkaline Phosphatase (38-126) U/L Total Creatine Kinase (55-170) U/L CK-MB (CK-2) (<2.37) ng/mL CK-MB (CK-2) Rel Index (1.5-5.0) % Troponin I (0.01-0.034) ng/mL NT-Pro-B Natriuret Pep 755 H (<450) pg/mL Total Protein (6.3-8.2) g/dL Albumin (3.5-5.0) g/dL Globulin (1.7-4.1) g/dL Albumin/Globulin Ratio (1.0-2.8) Lipase (23-300) U/L SARS-CoV-2 (PCR) Negative (Negative) Imaging Data Chest x-ray: Radiologist's Impression: [address] [address] XRay Report Signed Patient: John Alberto MR#: [id number] : 1945 Acct:[id number] Age/Sex: 76 / M Date of Service: 12/08/21 Loc: ED Accession Number: [id number] ?? Procedure: XR chest 1V Ordering Provider: Nyasia Mccarthy D.O. PROCEDURE:? XR CHEST 1V ? INDICATIONS:? chest pain ? TECHNIQUE:? One view of the chest was acquired.? ? COMPARISON:? [facility], CR, XR CHEST 1V, 10/22/2020, 1:00. ? FINDINGS:? ? Surgical changes and devices:? Sternotomy wires are seen.? ? Lungs and pleura:? Lungs are clear.? No pleural effusions or pneumothorax.? ? Mediastinum:? The cardiac contours are within normal limits. The aorta demonstrates calcification and tortuosity. ? Bones and chest wall:? Age-appropriate bony degenerative changes are seen.? No suspicious bony lesions.? Overlying soft tissues appear unremarkable.? ? ? IMPRESSION:? No significant portable chest abnormality can be seen for age. ? If clinically appropriate, a short-term followup chest series (with PA and lateral views) performed in deep inspiration is suggested for further evaluation.? Dictated by: Karlos Rosales M.D. on 12/08/2021 at 11:48 ? ? Approved by: Karlos Rosales M.D. on 12/08/2021 at 11:48?? ECG Data Attestation: I personally reviewed and interpreted this ECG as follows: Prior ECG tracings: available for review Interpretation: AFib with premature complexes. Rate of 98 QRS of 114 and QTC of 485. No acute ST elevation depression noted. V6 depression. Prior appears similar with no acute changes except for B6. MDM Narrative Medical decision making narrative: This is a 76-year-old male comes with complaint of chest pain for week and a half with no clear exacerbating or alleviating factors. He does find a leave somewhat helpful. Patient mentioned in passing that he has had some blisters along the area pain and on evaluation appears to have shingles. Patient does have a cardiac history. His chest x-ray, EKG and labs are reassuring and his clinical picture appears consistent with shingles. Patient started on antiviral, gabapentin for pain although he has does have some improvement with Aleve. And plan for follow-up with primary care as needed. Return precautions discussed. Discharge Plan Departure Patient Disposition: Home Clinical Impression: Shingles Instructions: DI for Shingles Activity Restrictions/Additional Instructions: Follow-up with your physician if you are not having any improvement in the next 1-2 weeks. Shingles pain can sometimes persist even after the rash resolves. You can take gabapentin long-term for pain if necessary. Take antivirals until completely gone. You may continue to take Aleve or Tylenol as needed for pain. If these are in adequate you may take gabapentin tablet every 8 hours as needed. This medications more effective if taken regularly. They can be titrated upwards if larger dose is needed and your primary care physician can help guide you through this. Prescription sent to in [place]. Please return for fevers, new or worsening pain, lightheadedness or passing out, shortness of breath, new swelling in your extremities, redness, warmth signs of spreading infection or other new or concerning symptoms. Prescriptions: New valacyclovir 1 gram tablet 1,000 mg PO TID 7 Days Qty: 21 0RF gabapentin 300 mg capsule 300 mg PO TID Qty: 30 0RF Rx Instructions: Start: 300 mg p.o. q.day x1 day, then 300 mg p.o. b.i.d. x1 day then 300 mg p.o. t.i.d. and continue at this dosage. No Action amlodipine 10 mg tablet 10 mg PO DAILY 0RF Eliquis 5 mg tablet 5 mg PO BID 0RF losartan 100 mg tablet 100 mg PO DAILY 0RF rosuvastatin [Crestor] 5 mg tablet 5 mg PO DAILY Qty: 90 0RF chlorthalidone 25 mg Tablet 12.5 mg PO DAILY 0RF (DME) CPAP ResMed See Rx Instructions .ROUTE .MEDSUPPLY 0RF Rx Instructions: REsMed Air Cure 10 Max IPAP 16 Min EPAP 4 Referrals: Laura Hutchison ARNP [Primary Care Provider] -
== END 2021-12-08 15:15 | disposition home or self-care (01) ==
PROVIDERS: Emergency Provider Emergency Medicine; PCP Nurse Practitioner
DX: B02.9 Zoster without complications (principal); I48.91 Unspecified atrial fibrillation; Z79.01 Long term (current) use of anticoagulants; Z20.822 Contact with and (suspected) exposure to COVID-19
CPT/HCPCS: 36415; 71045; 80053; 82550; 82553; 83690; 83735; 83880; 84484; 85025; 85610; 85730; 87635; 93005; 93010; 99284; C9803

== ENCOUNTER → 2022-02-03 10:32 | Outpatient (CLI) | payer MEDICARE, MEDICAID, SELFPAY ==
[2022-02-03 12:28] LABS: Alanine Aminotransferase 32 IU/L (<50); Albumin 4.8 g/dL (3.5-5.0); Albumin Globulin Ratio 1.5 (1.0-2.8); Alkaline Phosphatase 26 U/L (38-126); Aspartate Aminotransferase 41 IU/L (17-59); BUN Creatinine Ratio 19.3 (6-22); Bilirubin Total 1.2 mg/dL (0.2-1.3); Blood Urea Nitrogen 29 mg/dL (9-20); Calcium 9.8 mg/dL (8.4-10.2); Carbon Dioxide 31 mmol/L (22-32); Chloride 101 mmol/L (98-107); Estimated Glomerular Filt Rate 45.1 mL/min (>60); Globulin 3.3 g/dL (1.7-4.1); Glucose 124 mg/dL (80-110); HEMOLYSIS < 15 (0-50); Magnesium 1.7 mg/dL (1.6-2.3); Sodium 144 mmol/L (137-145); Total Protein 8.1 g/dL (6.3-8.2)
== END ==
PROVIDERS: PCP Nurse Practitioner; Referring Provider Nurse Practitioner; Visit Provider Nurse Practitioner
DX: I10 Essential (primary) hypertension (principal); N18.31 Chronic kidney disease, stage 3a; I50.22 Chronic systolic (congestive) heart failure; T50.2X1A Poisoning by carbonic-anhydrase inhibitors, benzothiadiazides and other diuretics, accidental (unintentional), initial encounter
CPT/HCPCS: 36415; 80053; 83735

== ENCOUNTER → 2022-05-11 12:06 | Outpatient (CLI) | payer MEDICARE, MEDICAID, SELFPAY ==
[2022-05-11 12:36] LABS: Add Manual Diff / Slide Review NO; Basophils Absolute Auto 0 /uL (0-100); Basophils Percent Auto 0.8 % (0-2); Eosinophils Absolute Auto 200 /uL (0-450); Eosinophils Percent Auto 4.3 % (2-4); Hematocrit 39.1 % (41-53); Hemoglobin 13.8 g/dL (13.5-17.5); Lymphocytes Absolute Auto 1200 /uL (1100-4500); Lymphocytes Percent Auto 21.2 % (25-40); Mean Corpuscular HGB Conc 35.2 % (30-36); Mean Corpuscular Hemoglobin 30.9 PG (26-34); Mean Corpuscular Volume 87.8 fL (80-100); Monocytes Absolute Auto 600 /uL (0-900); Neutrophils Absolute Auto 3600 /uL (1500-7000); Neutrophils Percent Auto 62.7 % (50-75); Platelet Count 162 X10^3/uL (150-400); Red Blood Cell Count 4.46 X10^6/uL (4.5-5.9); Red Cell Distribution Width 13.8 % (11.6-14.8); White Blood Cell Count 5.7 X10^3/uL (4.5-11.0)
[2022-05-11 13:09] LABS: HEMOLYSIS < 15 (0-50); NT-proBNP (BNP-Adult 18+) 225 pg/mL (<450)
[2022-05-11 13:10] LABS: Alanine Aminotransferase 23 IU/L (<50); Albumin 4.5 g/dL (3.5-5.0); Albumin Globulin Ratio 1.7 (1.0-2.8); Alkaline Phosphatase 43 U/L (38-126); Aspartate Aminotransferase 33 IU/L (17-59); BUN Creatinine Ratio 16.1 (6-22); Bilirubin Total 0.9 mg/dL (0.2-1.3); Blood Urea Nitrogen 25 mg/dL (9-20); Calcium 9.7 mg/dL (8.4-10.2); Carbon Dioxide 34 mmol/L (22-32); Chloride 98 mmol/L (98-107); Estimated Glomerular Filt Rate 45 mL/min (>60); Globulin 2.7 g/dL (1.7-4.1); Glucose 135 mg/dL (80-110); Magnesium 1.6 mg/dL (1.6-2.3); Potassium 3.7 mmol/L (3.4-5.1); Sodium 138 mmol/L (137-145); Total Protein 7.2 g/dL (6.3-8.2)
== END ==
PROVIDERS: PCP Nurse Practitioner; Referring Provider Nurse Practitioner; Visit Provider Nurse Practitioner
DX: I10 Essential (primary) hypertension (principal); T50.1X5A Adverse effect of loop [high-ceiling] diuretics, initial encounter; I48.11 Longstanding persistent atrial fibrillation; I50.22 Chronic systolic (congestive) heart failure; R00.2 Palpitations; R06.02 Shortness of breath; Z79.01 Long term (current) use of anticoagulants
CPT/HCPCS: 36415; 80053; 83735; 83880; 85025

== ENCOUNTER → 2022-07-26 10:08 | Outpatient (CLI) | payer MEDICARE, MEDICAID, SELFPAY ==
[2022-07-26 12:08] LABS: Add Manual Diff / Slide Review NO; Basophils Absolute Auto 0 /uL (0-100); Basophils Percent Auto 1.1 % (0-2); Eosinophils Absolute Auto 200 /uL (0-450); Eosinophils Percent Auto 4.6 % (2-4); Hematocrit 39.5 % (41-53); Hemoglobin 13.5 g/dL (13.5-17.5); Lymphocytes Absolute Auto 700 /uL (1100-4500); Mean Corpuscular HGB Conc 34.2 % (30-36); Mean Corpuscular Hemoglobin 31.3 PG (26-34); Mean Corpuscular Volume 91.5 fL (80-100); Monocytes Absolute Auto 500 /uL (0-900); Monocytes Percent Auto 11.7 % (3-14); Neutrophils Absolute Auto 2900 /uL (1500-7000); Neutrophils Percent Auto 65.6 % (50-75); Platelet Count 143 X10^3/uL (150-400); Red Blood Cell Count 4.32 X10^6/uL (4.5-5.9); Red Cell Distribution Width 14.8 % (11.6-14.8); White Blood Cell Count 4.4 X10^3/uL (4.5-11.0)
[2022-07-26 12:29] LABS: BUN Creatinine Ratio 15.4 (6-22); Blood Urea Nitrogen 21 mg/dL (9-20); Calcium 9.8 mg/dL (8.4-10.2); Carbon Dioxide 31 mmol/L (22-32); Chloride 101 mmol/L (98-107); Cholesterol 156 mg/dL (140-199); Estimated Glomerular Filt Rate 53 mL/min (>60); Glucose 107 mg/dL (80-110); HDL Cholesterol 57 mg/dL (40-60); HEMOLYSIS < 15 (0-50); LDL Cholesterol Calculated 86 mg/dL (<100); Potassium 3.9 mmol/L (3.4-5.1); Sodium 140 mmol/L (137-145); Triglycerides 63 mg/dL (35-150)
== END ==
PROVIDERS: PCP Nurse Practitioner; Referring Provider Internal Medicine Cardiovascular Disease; Visit Provider Internal Medicine Cardiovascular Disease
DX: E78.5 Hyperlipidemia, unspecified (principal); I10 Essential (primary) hypertension; Z79.01 Long term (current) use of anticoagulants
CPT/HCPCS: 36415; 80048; 80061; 85025

== ENCOUNTER → 2024-02-01 14:44 | Outpatient (CLI) | payer MEDICARE, MEDICAID, SELFPAY ==
[2024-02-01 15:39] LABS: Add Manual Diff / Slide Review NO; Basophils Absolute Auto 100 /uL (0-100); Basophils Percent Auto 0.9 % (0-2); Eosinophils Absolute Auto 200 /uL (0-450); Eosinophils Percent Auto 3.4 % (2-4); Lymphocytes Absolute Auto 1100 /uL (1100-4500); Lymphocytes Percent Auto 19.8 % (25-40); Mean Corpuscular HGB Conc 34.1 % (30-36); Mean Corpuscular Hemoglobin 30.1 PG (26-34); Mean Corpuscular Volume 88.4 fL (80-100); Monocytes Absolute Auto 600 /uL (0-900); Monocytes Percent Auto 10.6 % (3-14); Neutrophils Absolute Auto 3800 /uL (1500-7000); Neutrophils Percent Auto 65.3 % (50-75); Platelet Count 175 X10^3/uL (150-400); Red Blood Cell Count 4.98 X10^6/uL (4.5-5.9); Red Cell Distribution Width 14.7 % (11.6-14.8); White Blood Cell Count 5.8 X10^3/uL (4.5-11.0)
[2024-02-01 15:57] LABS: Alanine Aminotransferase 35 IU/L (<50); Albumin 4.6 g/dL (3.5-5.0); Albumin Globulin Ratio 1.4 (1.0-2.8); Alkaline Phosphatase 31 U/L (38-126); Aspartate Aminotransferase 41 IU/L (17-59); BUN Creatinine Ratio 20.5 (6-22); Bilirubin Total 1.2 mg/dL (0.2-1.3); Blood Urea Nitrogen 34 mg/dL (9-20); Calcium 10.4 mg/dL (8.4-10.2); Carbon Dioxide 34 mmol/L (22-32); Chloride 102 mmol/L (98-107); Cholesterol 150 mg/dL (140-199); Estimated Glomerular Filt Rate 41 mL/min (>60); Globulin 3.4 g/dL (1.7-4.1); Glucose 122 mg/dL (80-110); HDL Cholesterol 64 mg/dL (40-60); HEMOLYSIS < 15 (0-50); LDL Cholesterol Calculated 70 mg/dL (<100); Potassium 3.6 mmol/L (3.4-5.1); Sodium 141 mmol/L (137-145); Triglycerides 80 mg/dL (35-150)
[2024-02-01 16:09] LABS: Free T3, Triiodothyronine Free 3.02 pg/mL (2.77-5.27); Free T4, Direct Thyroxine 0.91 ng/dL (0.78-2.19)
[2024-02-01 16:23] LABS: Thyroid Stimulating Hormone 8.22 uIU/mL (0.47-4.68)
[2024-02-01 16:24] LABS: Prostate Specific Antigen 22.2 ng/mL (0.10-4.00)
[2024-02-01 16:43] LABS: Microalbumin Urine Random 9.6 mg/dL (0-1.6)
[2024-02-01 16:46] LABS: Creatinine Urine Random 61.5 mg/dL
== END ==
PROVIDERS: PCP Nurse Practitioner; Referring Provider Nurse Practitioner; Visit Provider Nurse Practitioner
DX: D64.9 Anemia, unspecified (principal); N18.31 Chronic kidney disease, stage 3a; Z79.01 Long term (current) use of anticoagulants; M06.9 Rheumatoid arthritis, unspecified; I10 Essential (primary) hypertension; I50.22 Chronic systolic (congestive) heart failure; I48.11 Longstanding persistent atrial fibrillation; E78.2 Mixed hyperlipidemia; Z12.5 Encounter for screening for malignant neoplasm of prostate
CPT/HCPCS: 36415; 80053; 80061; 82043; 82570; 83735; 84153; 84439; 84443; 84481; 85025

== ENCOUNTER → 2024-03-13 16:15 | Outpatient (CLI) | payer MEDICARE, MEDICAID, SELFPAY ==
--- NOTE | 2024-03-13 16:19 | DI.MRI.S_ITS ---
PROCEDURE: MR PELVIC PROSTATE PROTOCOL INDICATIONS: Malignant neoplasm of prostate TECHNIQUE: Coronal HASTE, axial T1 FSE with fat saturation, 3-plane nonbreath-hold T2 FSE. After the administration of contrast, dynamic axial, delayed axial and coronal VIBE or 2-D FLASH with fat saturation through the pelvis. Diffusion weighted imaging and ADC was performed. COMPARISON: None. FINDINGS: Image quality: Diffusion weighted and dynamic contrast enhanced images are diagnostic. Prostate: 4.4 x 3.4 x 4.6 cm. Overall volume is 36 cc Right apex posterolateral peripheral zone lesion measuring 1.2 x 0.9 by 1.2 cm (6/7, 4/14). No definite extracapsular disease. Extent of contact with the capsule raises concern for possible micro capsular involvement. DWI score is 4. T2 score is 4. DCE positive. PI-RADS 4. Left basal periurethral transitional zone lesion, extending partially into the right gland, measuring 2.1 x 1.4 x 2.3 cm (6/15, 4/8). T2 score 5. DWI score 5. DCE positive. PI-RADS 5. Questionable extracapsular involvement is seen with this lesion at the superior aspect near the bladder neck (5/14). Left posterolateral mid gland peripheral zone lesion measures 0.8 x 0.8 x 0.9 cm (5/18, 4/11). DCE positive. DWI score 4. T2 score 4. PI-RADS 4. No macroscopic disease involving the seminal vesicles. Genitourinary system: TURP changes. No dilation of the distal ureters Bowel and peritoneum: No pathologic ascites. No bowel obstruction Nodes and vessels: Indeterminate borderline enlarged pelvic lymph nodes are seen, for example left external iliac measuring 1.2 cm in short axis (). No aneurysmal vessel identified. Soft tissues: Bilateral fat containing inguinal hernias Bones: No overtly suspicious focal bone lesion. There are degenerative changes. IMPRESSION: Suspect multifocal prostate adenocarcinoma involving both the right and left glands as described above. Possible extracapsular extension near the bladder neck regarding the left basal transitional zone lesion. No macroscopic seminal vesicle involvement. Indeterminate borderline enlarged pelvic lymph nodes are present, for example left external iliac chain (). Consider prostate PET-CT if clinically indicated. Dictated by: Raleigh Hou M.D. on 03/14/2024 at 9:44 Approved by: Raleigh Hou M.D. on 03/14/2024 at 9:51
[2024-03-13 17:57] LABS: Estimated Glomerular Filt Rate 42 mL/min (>60)
[2024-03-13 18:20] LABS: Prostate Specific Antigen 23.6 ng/mL (0.10-4.00)
== END ==
PROVIDERS: PCP Nurse Practitioner; Referring Provider Specialist; Visit Provider Specialist
DX: C61 Malignant neoplasm of prostate (principal); R97.20 Elevated prostate specific antigen [PSA]
CPT/HCPCS: 36415; 72197; 82565; 84153; A9579

== ENCOUNTER → 2025-01-07 14:30 | Outpatient (CLI) | payer MEDICARE, MEDICAID, SELFPAY ==
[2025-01-07 15:30] LABS: Add Manual Diff / Slide Review NO; Basophils Absolute Auto 100 /uL (0-100); Basophils Percent Auto 1.1 % (0-2); Eosinophils Absolute Auto 300 /uL (0-450); Eosinophils Percent Auto 5.6 % (2-4); Hematocrit 39.6 % (41-53); Hemoglobin 13.6 g/dL (13.5-17.5); Lymphocytes Absolute Auto 900 /uL (1100-4500); Lymphocytes Percent Auto 18.3 % (25-40); Mean Corpuscular HGB Conc 34.4 % (30-36); Mean Corpuscular Hemoglobin 30.5 PG (26-34); Mean Corpuscular Volume 88.6 fL (80-100); Monocytes Absolute Auto 400 /uL (0-900); Monocytes Percent Auto 7.8 % (3-14); Neutrophils Absolute Auto 3200 /uL (1500-7000); Neutrophils Percent Auto 67.2 % (50-75); Platelet Count 180 X10^3/uL (150-400); Red Blood Cell Count 4.47 X10^6/uL (4.5-5.9); Red Cell Distribution Width 14.9 % (11.6-14.8); White Blood Cell Count 4.8 X10^3/uL (4.5-11.0)
[2025-01-07 15:46] LABS: Hemoglobin A1C% w Est Avg Glu 6.1 % (4.0-6.0)
[2025-01-07 15:58] LABS: Alanine Aminotransferase 24 IU/L (<50); Albumin 4.6 g/dL (3.5-5.0); Albumin Globulin Ratio 1.6 (1.0-2.8); Alkaline Phosphatase 35 U/L (38-126); Aspartate Aminotransferase 36 IU/L (17-59); BUN Creatinine Ratio 16.2 (6-22); Bilirubin Total 0.9 mg/dL (0.2-1.3); Blood Urea Nitrogen 24 mg/dL (9-20); Calcium 10.4 mg/dL (8.4-10.2); Carbon Dioxide 32 mmol/L (22-32); Chloride 97 mmol/L (98-107); Cholesterol 217 mg/dL (140-199); Estimated Glomerular Filt Rate 47 mL/min (>60); Globulin 2.9 g/dL (1.7-4.1); Glucose 117 mg/dL (80-110); HDL Cholesterol 66 mg/dL (40-60); HEMOLYSIS < 15 (0-50); LDL Cholesterol Calculated 123 mg/dL (<100); Potassium 3.3 mmol/L (3.4-5.1); Sodium 138 mmol/L (137-145); Total Protein 7.5 g/dL (6.3-8.2); Triglycerides 139 mg/dL (35-150)
[2025-01-09 03:41] LABS: CRP, High Sensitivity 1.36 mg/L (0.00-3.00)
== END ==
PROVIDERS: PCP Family Medicine; Referring Provider Family Medicine; Visit Provider Family Medicine
DX: E03.9 Hypothyroidism, unspecified (principal); D64.9 Anemia, unspecified; E78.2 Mixed hyperlipidemia; N18.31 Chronic kidney disease, stage 3a; Z79.01 Long term (current) use of anticoagulants; M06.9 Rheumatoid arthritis, unspecified; I50.9 Heart failure, unspecified; I48.91 Unspecified atrial fibrillation; R73.01 Impaired fasting glucose; Z79.899 Other long term (current) drug therapy; I13.0 Hypertensive heart and chronic kidney disease with heart failure and stage 1 through stage 4 chronic kidney disease, or unspecified chronic kidney disease
CPT/HCPCS: 80053; 80061; 83036; 84439; 84443; 85025; 86140

== ENCOUNTER → 2025-02-12 16:50 | Outpatient (CLI) | payer MEDICARE, MEDICAID, SELFPAY ==
[2025-02-12 18:20] LABS: Alanine Aminotransferase 21 IU/L (<50); Albumin 4.4 g/dL (3.5-5.0); Albumin Globulin Ratio 1.8 (1.0-2.8); Alkaline Phosphatase 34 U/L (38-126); Aspartate Aminotransferase 30 IU/L (17-59); BUN Creatinine Ratio 14.7 (6-22); Bilirubin Total 0.7 mg/dL (0.2-1.3); Blood Urea Nitrogen 20 mg/dL (9-20); Calcium 9.8 mg/dL (8.4-10.2); Carbon Dioxide 31 mmol/L (22-32); Chloride 102 mmol/L (98-107); Estimated Glomerular Filt Rate 52 mL/min (>60); Globulin 2.5 g/dL (1.7-4.1); Glucose 106 mg/dL (80-110); HEMOLYSIS < 15 (0-50); Potassium 3.9 mmol/L (3.4-5.1); Sodium 140 mmol/L (137-145); Total Protein 6.9 g/dL (6.3-8.2)
[2025-02-12 18:35] LABS: Vitamin D 25 Hydroxy (D3) 75.7 ng/mL (30.0-100.0)
[2025-02-12 19:14] LABS: Free T4, Direct Thyroxine 0.88 ng/dL (0.78-2.19)
== END ==
PROVIDERS: PCP Family Medicine; Referring Provider Family Medicine; Visit Provider Family Medicine
DX: E03.9 Hypothyroidism, unspecified (principal); E83.52 Hypercalcemia; E87.6 Hypokalemia
CPT/HCPCS: 36415; 80053; 82306; 84439; 84443

== ENCOUNTER → 2025-08-14 11:19 | Outpatient (CLI) | payer MEDICARE, MEDICAID, SELFPAY ==
[2025-08-14 12:42] LABS: Hemoglobin A1C% w Est Avg Glu 6.3 % (4.0-6.0)
[2025-08-14 12:51] LABS: Alanine Aminotransferase 15 IU/L (<50); Albumin 4.3 g/dL (3.5-5.0); Albumin Globulin Ratio 1.7 (1.0-2.8); Alkaline Phosphatase 31 U/L (38-126); Blood Urea Nitrogen 19 mg/dL (9-20); Calcium 9.4 mg/dL (8.4-10.2); Carbon Dioxide 28 mmol/L (22-32); Chloride 104 mmol/L (98-107); Estimated Glomerular Filt Rate 50 mL/min (>60); Globulin 2.6 g/dL (1.7-4.1); Glucose 109 mg/dL (70-99); HEMOLYSIS < 15 (0-50); Potassium 3.8 mmol/L (3.4-5.1); Sodium 142 mmol/L (137-145); Total Protein 6.9 g/dL (6.3-8.2)
[2025-08-14 13:22] LABS: TSH w/ Reflex to FT4 19.80 uIU/mL (0.47-4.68)
[2025-08-14 16:19] LABS: Microalbumi Creatinin Ratio Ur 241.0 ug/mg CR (<30)
[2025-08-14 19:03] LABS: Free T4, Direct Thyroxine 0.84 ng/dL (0.78-2.19)
== END ==
PROVIDERS: PCP Family Medicine; Referring Provider Family Medicine; Visit Provider Family Medicine
DX: E11.9 Type 2 diabetes mellitus without complications (principal); E03.9 Hypothyroidism, unspecified; E83.52 Hypercalcemia; I10 Essential (primary) hypertension
CPT/HCPCS: 36415; 80053; 82043; 82570; 83036; 84439; 84443

== ENCOUNTER → 2025-08-20 14:33 | Outpatient (CLI) | payer MEDICARE, MEDICAID, SELFPAY ==
--- NOTE | 2025-08-20 14:34 | DI.RAD.S_ITS ---
PROCEDURE: XR CHEST 2V INDICATIONS: acute on chronic SOB TECHNIQUE: 2 views of the chest were acquired. COMPARISON: CT, CT CHEST W CON, 08/14/2020, 14:31. [facility], CR, XR CHEST 2V, 08/13/2020, 13:14. NM, NM PET CT FUSION SKULL 2 THIGH, 05/02/2024, 18:11. [facility], CR, XR CHEST 1V, 10/22/2020, 1:00. [facility], CR, XR CHEST 1V, 12/08/2021, 12:33. FINDINGS: Surgical changes and devices: Prior median sternotomy. Lungs and pleura: Lungs are clear, aside from 2 cm lobular opacity seen on the frontal view projected over the right 4th anterior lateral rib which is unchanged dating back to prior chest radiograph dated 08/13/2020 and may represent anterior calcified pleural plaque as was seen on prior CT. No pleural effusions or pneumothorax. Mediastinum: Mediastinal contours are normal. Heart size is enlarged. Bones and chest wall: No suspicious bony abnormalities. Soft tissues appear unremarkable. IMPRESSION: Cardiomegaly and no definitive acute cardiopulmonary process. Dictated by: Michael GUZMAN Interpreted: Elliott Mccarthy MD on 08/20/2025 at 14:45 Approved by: Elliott Mccarthy M.D. on 08/20/2025 at 21:29
== END ==
PROVIDERS: PCP Family Medicine; Referring Provider Family Medicine; Visit Provider Family Medicine
DX: R06.02 Shortness of breath (principal); I51.7 Cardiomegaly
CPT/HCPCS: 71046

== ENCOUNTER → 2025-09-10 16:44 | Outpatient (CLI) | payer MEDICARE, MEDICAID, SELFPAY ==
[2025-09-10 17:23] LABS: Add Manual Diff / Slide Review NO; Hematocrit 39.7 % (41-53); Hemoglobin 13.9 g/dL (13.5-17.5); Lymphocytes Absolute Auto 1000 /uL (1100-4500); Mean Corpuscular HGB Conc 34.9 % (30-36); Mean Corpuscular Hemoglobin 31.1 PG (26-34); Mean Corpuscular Volume 89.1 fL (80-100); Platelet Count 187 X10^3/uL (150-400)
[2025-09-10 17:36] LABS: Alanine Aminotransferase 21 IU/L (<50); Albumin 5.0 g/dL (3.5-5.0); Albumin Globulin Ratio 1.8 (1.0-2.8); Alkaline Phosphatase 34 U/L (38-126); Blood Urea Nitrogen 33 mg/dL (9-20); Calcium 10.3 mg/dL (8.4-10.2); Carbon Dioxide 30 mmol/L (22-32); Chloride 98 mmol/L (98-107); Estimated Glomerular Filt Rate 41 mL/min (>60); Globulin 2.8 g/dL (1.7-4.1); Glucose 127 mg/dL (70-99); HEMOLYSIS < 15 (0-50); Potassium 3.4 mmol/L (3.4-5.1); Sodium 142 mmol/L (137-145); Total Protein 7.8 g/dL (6.3-8.2)
[2025-09-10 18:07] LABS: TSH w/ Reflex to FT4 11.40 uIU/mL (0.47-4.68)
[2025-09-10 18:12] LABS: Ferritin 121 ng/mL (18-464)
[2025-09-10 21:14] LABS: Free T4, Direct Thyroxine 1.14 ng/dL (0.78-2.19)
== END ==
PROVIDERS: PCP Family Medicine; Referring Provider Family Medicine; Visit Provider Family Medicine
DX: D50.9 Iron deficiency anemia, unspecified (principal); N18.31 Chronic kidney disease, stage 3a; E03.9 Hypothyroidism, unspecified
CPT/HCPCS: 80053; 82728; 84439; 84443; 85025